=== PATIENT | female | born 1970 | race Caucasian/White ===

== ENCOUNTER 2020-12-04 08:33 | Outpatient (REF) | payer BC, SELFPAY ==
[2020-12-04 08:54] LABS: Hematocrit 38.2 % (37-47); Hemoglobin 13.8 g/dl (12.0-16.0); Mean Corpuscular HGB Conc 36.1 g/dl (31.0-35.0); Mean Corpuscular Hemoglobin 32.2 pg (27.0-33.0); Mean Platelet Volume 9.3 fL (9.4-12.3); Platelet Count 231 X10*3/uL (160-400); Red Blood Count 4.29 X10*6/uL (4.20-5.50); Red Cell Distribution Width 11.7 % (11.0-16.0); White Blood Count 3.8 X10*3/uL (4.8-10.8)
== END 2020-12-04 08:34 | disposition home or self-care (01) ==
LOC: HO.LAB 08:33
PROVIDERS: PCP Internal Medicine; Visit Provider Psychiatry & Neurology Neurology
DX: D70.9 Neutropenia, unspecified (principal)
CPT/HCPCS: 36415; 85027

== ENCOUNTER 2021-01-08 07:59 | Day surgery (SDC) | payer BC, SELFPAY ==
[2021-01-01 15:07] VITALS: BMI 23.3
--- NOTE | 2021-01-05 09:18 | HO.ANESPROP2 ---
Documented by User: Crystal Dyer NP 01/05/21 09:18 HPI - Anesthesia Eval Consult details Narrative: 50yo F for Colonoscopy PMFSH Past Medical History Medical History Anxiety and depression COVID-19 vaccine series completed Restless leg syndrome Seizures Family History Family History Father No problems noted. Mother No problems noted. Brother No problems noted. Brother No problems noted. Surgical History Surgical History History of esophagogastroduodenoscopy (EGD) History of fasciotomy History of total left knee replacement (TKR) Social History Social History Are you a primary home care rn to a significant other at home: No Do you presently have visiting nurse or other home services: No Patient Tobacco Use Status: Former Tobacco user Quit Date: age 20 Tobacco use type: Cigarette Use of substances other than those prescribed or required for medical reasons: No Have you been hit, kicked, punched, or otherwise hurt by someone within the past year? If so, by whom?: No Are you DNR?: No Advance Directives: Yes Advance Directives Information Provided: Yes (informational brochure mailed) Advance Directives on File: Yes Advance Directives Date on File: 01/08/21 Recently lost weight without trying: No Eating poorly because of decreased appetite: No Nutrition Risks: No Nutritional Risk Patient : No FDLMP: age 40 : No Poor oral hygiene: No Meds Allergies Allergy/AdvReac Type Severity Reaction Status Date / Time No Known Allergies Allergy Verified 01/08/21 08:39 [No Known Allergies*] Home Medications Medication Instructions Recorded Confirmed Last Taken Type escitalopram oxalate 20 mg tablet 20 mg PO DAILY 11/17/19 01/01/21 Unknown History promethazine 12.5 mg tablet 12.5 mg PO Q6H PRN 11/17/19 01/01/21 Unknown History cetirizine 10 mg tablet 10 mg PO DAILY 01/01/21 01/01/21 Unknown History docusate sodium 100 mg capsule 100 mg PO DAILY 01/01/21 01/01/21 Unknown History (Colace) gabapentin 100 mg tablet 100 mg PO BEDTIME PRN 01/01/21 01/01/21 Unknown History multivitamin 1 tab PO DAILY 01/01/21 01/01/21 Unknown History oxcarbazepine 300 mg tablet 300 mg PO BID 01/01/21 01/01/21 01/08/21 07:00 History polyethylene glycol 3350 17 gram 17 g PO DAILY 01/01/21 01/01/21 Unknown History oral powder packet (Miralax) Exam Exam Date and Time: January 05, [id number] Height,Weight and Vital Signs: Height 5 ft 5 in Weight 63.503 kg Assessment and Plan Assessment Anesthesia Assessment: Chart Reviewed Documented by User: Norma Olsen MD 01/08/21 10:12 [facility] Past Medical History Medical History Anxiety and depression COVID-19 vaccine series completed Restless leg syndrome Seizures Functional capacity: independent ambulation Patient : No Family History Family History Father No problems noted. Mother No problems noted. Brother No problems noted. Brother No problems noted. Surgical History Surgical History History of esophagogastroduodenoscopy (EGD) History of fasciotomy History of total left knee replacement (TKR) Social History Social History Are you a primary home care rn to a significant other at home: No Do you presently have visiting nurse or other home services: No Patient Tobacco Use Status: Former Tobacco user Quit Date: age 20 Tobacco use type: Cigarette Use of substances other than those prescribed or required for medical reasons: No Have you been hit, kicked, punched, or otherwise hurt by someone within the past year? If so, by whom?: No Are you DNR?: No Advance Directives: Yes Advance Directives Information Provided: Yes (informational brochure mailed) Advance Directives on File: Yes Advance Directives Date on File: 01/08/21 Recently lost weight without trying: No Eating poorly because of decreased appetite: No Nutrition Risks: No Nutritional Risk Patient : No FDLMP: age 40 : No Poor oral hygiene: No Meds Allergies Allergy/AdvReac Type Severity Reaction Status Date / Time No Known Allergies Allergy Verified 01/08/21 08:39 [No Known Allergies*] Home Medications Medication Instructions Recorded Confirmed Last Taken Type escitalopram oxalate 20 mg tablet 20 mg PO DAILY 11/17/19 01/01/21 Unknown History promethazine 12.5 mg tablet 12.5 mg PO Q6H PRN 11/17/19 01/01/21 Unknown History cetirizine 10 mg tablet 10 mg PO DAILY 01/01/21 01/01/21 Unknown History docusate sodium 100 mg capsule 100 mg PO DAILY 01/01/21 01/01/21 Unknown History (Colace) gabapentin 100 mg tablet 100 mg PO BEDTIME PRN 01/01/21 01/01/21 Unknown History multivitamin 1 tab PO DAILY 01/01/21 01/01/21 Unknown History oxcarbazepine 300 mg tablet 300 mg PO BID 01/01/21 01/01/21 01/08/21 07:00 History polyethylene glycol 3350 17 gram 17 g PO DAILY 01/01/21 01/01/21 Unknown History oral powder packet (Miralax) Exam Airway Mallampati Class: II TM Dist: >3cm Neck ROM: Full Heart: RRR Lungs: CTA Assessment and Plan Final Anesthetic Review Final Preanesthetic Review: No Changes in Pt Med Stat Patient Risk: Low Procedure Risk: Low Anesthetic Plan Anesthetic Plan: MAC: Disposition: Standard PACU
[2021-01-08 08:47] LABS: UPreg QC Valid YES; Urine Pregnancy NEGATIVE (NEGATIVE)
[2021-01-08] MEDS: Lactated Ringers 1,000 ML 100 ML IVCONT (08:56)
[2021-01-08] MEDS: Ampicillin Sodium 2 GM in 0.9 % Sodium Chloride 100 ML IV (08:56)
[2021-01-08 09:00] VITALS: BP 114/74; PULSE 49; RESP 16; TEMP 36.8; O2SAT 100
[2021-01-08] MEDS: Gentamicin Sulfate/NaCl 80 MG/100 ML PIGGYBACK 100 MG IV (09:10)
[2021-01-08 10:35] VITALS: BP 93/62; PULSE 50; RESP 16; TEMP 36.1; O2SAT 98
--- NOTE | 2021-01-08 10:39 | PM.OP ---
Brief Operative Note Date of Service: 01/08/21 Pre-op diagnosis: Screening Post-op diagnosis: other (Colon polyp) Procedure: Colonoscopy to the cecum and TI with biopsy/removal of polyp Surgeon: Ja Short Anesthesia: MAC Was an Manufacturing Maintenance Technician used for this Procedure?: No Estimated blood loss (mL): 2.0 Pathology: other (A. Proximal ascending colon polyp) Condition: stable Disposition: PACU
[2021-01-08 10:50] VITALS: BP 102/70; PULSE 48; RESP 16; TEMP 36.1; O2SAT 98
--- NOTE | 2021-01-08 13:15 | HO.POSTANES ---
Post Anesthesia Evaluation Post Anesthesia Evaluation Vital Signs: Vital Signs Temp Pulse Resp BP Pulse Ox 01/08/21 10:50 97.0 F 48 L 16 102/70 98 01/08/21 10:35 97.0 F 50 16 93/62 98 01/08/21 09:00 98.3 F 49 L 16 114/74 100 Anesthesia: Monitored Mental Status: Awake Pain Control: Satisfactory Nausea/Vomiting: None Hydration: Adequate Anesthesia-Related Issues: No Anes. Related Issues
--- NOTE | 2021-01-08 14:49 | OP_ITS ---
SURGEON: Ja Short MD INDICATIONS: The patient presents for evaluation of colorectal cancer screening as well as a history of some perianal itching. Full consent has been obtained from her for this, including risks of bleeding and perforation. PREOPERATIVE DIAGNOSIS: POSTOPERATIVE DIAGNOSIS: PROCEDURE PERFORMED: Colonoscopy to cecum and terminal ileum with biopsy and removal of polyp. ESTIMATED BLOOD LOSS: COMPLICATIONS: ANESTHESIA: Monitored anesthesia care. ASSISTANTS: SPECIMENS: PREOPERATIVE DIAGNOSES: Colorectal cancer screening and perianal itching. POSTOPERATIVE DIAGNOSES: Colorectal cancer screening and perianal itching, small colon polyp, mild sigmoid diverticulosis, and small internal hemorrhoids. DESCRIPTION OF PROCEDURE: The patient was placed in the left lateral decubitus position. The digital rectal exam revealed no abnormalities. The perianal area was inspected and there was no sign of any skin abnormalities, hemorrhoids, nor fissures. The Olympus video pediatric colonoscope was entered into the rectum and advanced easily to the cecum. Once in the cecum, I did identify normal-appearing cecal pouch with appendiceal orifice and a normal-appearing ileocecal valve. The terminal ileum was cannulated and appeared normal. The scope was withdrawn back in the colon. The entire cecum and ileocecal valve appeared normal. The scope was slowly withdrawn assessing all mucosal surfaces carefully. Preparation was excellent. In the proximal ascending colon, was a flat approximately 3 mm polyp, which was biopsied and completely removed with cold biopsy forceps. I did not visualize any other polyps, colitis, nor angiodysplasia. There was a mild amount of sigmoid diverticulosis. In the rectum, scope was retroflexed visualizing small internal hemorrhoids, but no other pathology. The rectal mucosa appeared normal. The scope was straightened out and withdrawn from the patient. She tolerated the procedure well and was returned to recovery area in stable condition. IMPRESSION: 1. Small colon polyp, status post biopsy and removal. 2. Mild sigmoid diverticulosis. 3. Small internal hemorrhoids. PLAN: The results of the biopsy will be checked. If this is a tubular adenoma, I would recommend a followup colonoscopy in 5 years. If it is only hyperplastic, I would recommend a followup colonoscopy in 10 years. In regard to the history of perianal itching, she does report that this resolved with the use of a cream for anti-fungal infections. She is presently feeling well in that regard and will continue to use that as needed. She will see me on a p.r.n. basis. MD ARIES Pinzon/JAJA / [id number]
== END 2021-01-08 11:26 | disposition home or self-care (01) ==
PROVIDERS: Nurse Practitioner; PCP Internal Medicine; Visit Provider Internal Medicine
PROC: 0DJD8ZZ Inspection of Lower Intestinal Tract, Via Natural or Artificial Opening Endoscopic (ICD-10-PCS; CPT 45378; principal; 2021-01-08 09:30)
DX: Z12.11 Encounter for screening for malignant neoplasm of colon (principal); D12.2 Benign neoplasm of ascending colon; K57.30 Diverticulosis of large intestine without perforation or abscess without bleeding; K64.8 Other hemorrhoids; K59.09 Other constipation; L29.0 Pruritus ani; F41.8 Other specified anxiety disorders; G40.909 Epilepsy, unspecified, not intractable, without status epilepticus; G25.81 Restless legs syndrome; Z79.899 Other long term (current) drug therapy; Z87.891 Personal history of nicotine dependence
CPT/HCPCS: 45380; 81025; 88305; J0290; J1580

== ENCOUNTER 2021-06-04 08:50 | Outpatient (REF) | payer BC, SELFPAY ==
[2021-06-04 09:01] LABS: MANUAL DIFF FLAG NO
[2021-06-04 09:11] LABS: Basophils Absolute Auto 0.1 X10*3/uL (0.0-0.2); Basophils Percent Auto 1.4 % (0-2); Eosinophils Absolute Auto 0.6 X10*3/uL (0.0-0.4); Eosinophils Percent Auto 12.9 % (0-4); Hematocrit 40.7 % (37.0-47.0); Hemoglobin 14.2 g/dl (12.0-16.0); Imm Gran Abs Auto 0.01 X10*3/uL (0.00-0.03); Imm Gran Pct Auto 0.2 % (0.0-0.4); Lymphocytes Absolute Auto 1.4 X10*3/uL (1.2-4.9); Lymphocytes Percent Auto 27.4 % (20-40); Mean Corpuscular HGB Conc 34.9 g/dl (31.0-35.0); Mean Corpuscular Hemoglobin 31.9 pg (27.0-33.0); Mean Corpuscular Volume 91.5 fL (80.0-98.0); Mean Platelet Volume 9.6 fL (9.4-12.3); Monocytes Absolute Auto 0.4 X10*3/uL (0.1-1.2); Monocytes Percent Auto 8.9 % (2-11); Neutrophils Absolute Auto 2.5 x10*3/uL (2.0-8.3); Neutrophils Percent Auto 49.2 % (45-73); Platelet Count 250 X10*3/uL (160-400); Red Blood Count 4.45 X10*6/uL (4.20-5.50); Red Cell Distribution Width 11.8 % (11.0-16.0)
[2021-06-04 09:49] LABS: Alanine Aminotransferase 18 U/L (0-31); Albumin Level 4.4 g/dL (3.5-5.0); Alkaline Phosphatase 48 U/L (39-117); Aspartate Amino Transferase 22 U/L (5-31); Bilirubin Direct 0.2 mg/dL (0.0-0.5); Bilirubin Total 0.5 mg/dL (0.0-1.0); Total Protein 6.6 g/dL (6.5-8.0)
== END 2021-06-04 08:51 | disposition home or self-care (01) ==
LOC: HO.LAB 08:50
PROVIDERS: PCP Internal Medicine; Visit Provider Psychiatry & Neurology Neurology
DX: G40.209 Localization-related (focal) (partial) symptomatic epilepsy and epileptic syndromes with complex partial seizures, not intractable, without status epilepticus (principal); D70.9 Neutropenia, unspecified
CPT/HCPCS: 36415; 80076; 85025

== ENCOUNTER 2022-06-03 08:32 | Outpatient (REF) | payer BC, SELFPAY ==
[2022-06-03 08:47] LABS: MANUAL DIFF FLAG NO
[2022-06-03 08:50] LABS: Basophils Absolute Auto 0.1 X10*3/uL (0.0-0.2); Basophils Percent Auto 2.2 % (0-2); Eosinophils Absolute Auto 0.3 X10*3/uL (0.0-0.4); Hematocrit 40.3 % (37.0-47.0); Hemoglobin 14.5 g/dl (12.0-16.0); Lymphocytes Absolute Auto 1.3 X10*3/uL (1.2-4.9); Lymphocytes Percent Auto 34.8 % (20-40); Mean Corpuscular Hemoglobin 32.8 pg (27.0-33.0); Mean Corpuscular Volume 91.2 fL (80.0-98.0); Mean Platelet Volume 9.7 fL (9.4-12.3); Monocytes Absolute Auto 0.3 X10*3/uL (0.1-1.2); Monocytes Percent Auto 8.7 % (2-11); Neutrophils Absolute Auto 1.7 x10*3/uL (2.0-8.3); Neutrophils Percent Auto 45.3 % (45-73); Platelet Count 242 X10*3/uL (160-400); Red Blood Count 4.42 X10*6/uL (4.20-5.50); Red Cell Distribution Width 11.5 % (11.0-16.0); White Blood Count 3.7 X10*3/uL (4.8-10.8)
[2022-06-03 09:31] LABS: Alanine Aminotransferase 19 U/L (0-31); Albumin Level 4.6 g/dL (3.5-5.0); Alkaline Phosphatase 49 U/L (39-117); Aspartate Amino Transferase 24 U/L (5-31); Bilirubin Direct 0.2 mg/dL (0.0-0.5); Bilirubin Total 0.7 mg/dL (0.0-1.0); Total Protein 6.6 g/dL (6.5-8.0)
== END 2022-06-03 08:33 | disposition home or self-care (01) ==
LOC: HO.LAB 08:32
PROVIDERS: PCP Internal Medicine; Visit Provider Psychiatry & Neurology Neurology
DX: G40.209 Localization-related (focal) (partial) symptomatic epilepsy and epileptic syndromes with complex partial seizures, not intractable, without status epilepticus (principal)
CPT/HCPCS: 36415; 80076; 85025

== ENCOUNTER 2023-06-02 08:40 | Outpatient (REF) | payer BC, SELFPAY ==
[2023-06-02 09:04] LABS: MANUAL DIFF FLAG NO
[2023-06-02 09:12] LABS: Basophils Absolute Auto 0.1 X10*3/uL (0.0-0.2); Basophils Percent Auto 2.3 % (0-2); Eosinophils Absolute Auto 0.3 X10*3/uL (0.0-0.4); Eosinophils Percent Auto 8.5 % (0-4); Hematocrit 38.5 % (37.0-47.0); Hemoglobin 13.8 g/dl (12.0-16.0); Lymphocytes Absolute Auto 1.4 X10*3/uL (1.2-4.9); Lymphocytes Percent Auto 38.7 % (20-40); Mean Corpuscular HGB Conc 35.8 g/dl (31.0-35.0); Mean Corpuscular Hemoglobin 32.2 pg (27.0-33.0); Mean Corpuscular Volume 89.7 fL (80.0-98.0); Mean Platelet Volume 9.5 fL (9.4-12.3); Monocytes Absolute Auto 0.3 X10*3/uL (0.1-1.2); Monocytes Percent Auto 8.8 % (2-11); Neutrophils Absolute Auto 1.5 x10*3/uL (2.0-8.3); Neutrophils Percent Auto 41.7 % (45-73); Platelet Count 223 X10*3/uL (160-400); Red Blood Count 4.29 X10*6/uL (4.20-5.50); Red Cell Distribution Width 11.5 % (11.0-16.0); White Blood Count 3.5 X10*3/uL (4.8-10.8)
[2023-06-02 09:50] LABS: C Reactive Protein 0.11 mg/dL (< or = 0.50)
[2023-06-02 09:59] LABS: Rheumatoid Factor < 13.0 IU/mL (<15.0)
[2023-06-02 10:07] LABS: Erythrocyte Sedimentation Rate 2 MM/HR (0-20)
[2023-06-03 09:50] LABS: Lyme Abs Screen <0.90 index
[2023-06-04 13:49] LABS: ANA Titer 2 1:40 titer; Anti Nuclear Antibody Pattern Nuclear, Nucleolar; Anti Nuclear Antibody Screen POSITIVE (NEGATIVE); Anti Nuclear Antibody Titer 1:40 titer
[2023-06-04 14:38] LABS: Complement C3 68 mg/dL (83-193)
== END 2023-06-02 08:41 | disposition home or self-care (01) ==
LOC: HO.LAB 08:40
PROVIDERS: PCP Internal Medicine; Visit Provider Psychiatry & Neurology Neurology
DX: G40.209 Localization-related (focal) (partial) symptomatic epilepsy and epileptic syndromes with complex partial seizures, not intractable, without status epilepticus (principal)
CPT/HCPCS: 36415; 84550; 85025; 85652; 86038; 86039; 86140; 86160; 86431; 86617; 86618

== ENCOUNTER 2024-05-03 15:25 | Outpatient (REF) | payer BC, SELFPAY ==
[2024-05-03 16:31] LABS: MANUAL DIFF FLAG NO
[2024-05-03 16:57] LABS: Basophils Absolute Auto 0.1 X10*3/uL (0.0-0.2); Basophils Percent Auto 1.3 % (0-2); Eosinophils Absolute Auto 0.3 X10*3/uL (0.0-0.4); Eosinophils Percent Auto 4.9 % (0-4); Hematocrit 35.9 % (37.0-47.0); Hemoglobin 13.1 g/dl (12.0-16.0); Imm Gran Abs Auto 0.01 X10*3/uL (0.00-0.03); Imm Gran Pct Auto 0.2 % (0.0-0.4); Lymphocytes Absolute Auto 1.9 X10*3/uL (1.2-4.9); Lymphocytes Percent Auto 31.6 % (20-40); Mean Corpuscular HGB Conc 36.5 g/dl (31.0-35.0); Mean Corpuscular Hemoglobin 32.8 pg (27.0-33.0); Mean Corpuscular Volume 89.8 fL (80.0-98.0); Mean Platelet Volume 9.3 fL (9.4-12.3); Monocytes Absolute Auto 0.4 X10*3/uL (0.1-1.2); Monocytes Percent Auto 7.2 % (2-11); Neutrophils Absolute Auto 3.3 x10*3/uL (2.0-8.3); Neutrophils Percent Auto 54.8 % (45-73); Platelet Count 276 X10*3/uL (160-400); Red Cell Distribution Width 11.6 % (11.0-16.0)
[2024-05-03 17:14] LABS: Appearance Urine Clear; Color Urine Yellow; Glucose Urine UA Negative (Negative); Leukocyte Esterase Urine Small (1+) (Negative); Nitrite Urine Negative (Negative); UMIC TRIGGER UACC YES; Urine Blood Negative (Negative); Urine Ketones Negative (Negative); Urine Protein Negative (Neg-Trace)
[2024-05-03 17:14] LABS: Estimated Average Glucose 97 mg/dL
[2024-05-03 17:21] LABS: Bacteria Urine None Seen (None Seen); Hyaline Casts Urine 0-2 /LPF (0-2); RBC Urine 0-2 /HPF (0-2); Squamous Epithelial Cell Urine 0-2 /HPF (0-2); UACC Culture Trigger YES
[2024-05-03 17:29] LABS: Monotest Negative (Negative)
[2024-05-03 17:39] LABS: Alanine Aminotransferase 22 U/L (0-31); Albumin Level 4.4 g/dL (3.5-5.0); Alkaline Phosphatase 56 U/L (39-117); Anion Gap 9 (12-20); Aspartate Amino Transferase 24 U/L (5-31); Bilirubin Direct 0.1 mg/dL (0.0-0.5); Bilirubin Total 0.3 mg/dL (0.0-1.0); Blood Urea Nitrogen 13 mg/dL (9-16); Calcium 8.9 mg/dL (8.4-10.2); Carbon Dioxide 28 mmol/L (22-29); Chloride 98 mmol/L (96-108); Estimated Glomerular Filt Rate > 60; Glucose Random 103 mg/dL (60-115); Sodium 131 mmol/L (135-145)
[2024-05-03 17:42] LABS: Parathyroid Hormone Intact 91.6 pg/mL (8.7-77.1)
[2024-05-03 17:53] LABS: TSH reflex Free T4 1.58 uIU/mL (0.32-4.0); Vitamin D 25-OH Total 28.3 ng/mL (>30)
[2024-05-03 18:03] LABS: Folate 11.2 ng/mL (> or = 4.0); Vitamin B12 982 pg/mL (200-900)
[2024-05-04 11:12] LABS: Lyme Abs Screen <0.90 index
[2024-05-05 18:08] LABS: Zinc 66 mcg/dL (60-130)
[2024-05-11 07:13] LABS: Vitamin B1 13 nmol/L (8-30)
== END 2024-05-03 15:26 | disposition home or self-care (01) ==
LOC: HO.LAB 15:25
PROVIDERS: PCP Internal Medicine; Visit Provider Physician Assistant Medical
DX: Z00.00 Encounter for general adult medical examination without abnormal findings (principal); R53.1 Weakness; Z13.1 Encounter for screening for diabetes mellitus
CPT/HCPCS: 36415; 80053; 81001; 82248; 82306; 82607; 82746; 83036; 83735; 83970; 84425; 84443; 84630; 85025; 86140; 86308; 86617; 86618; 87086

== ENCOUNTER 2024-05-03 15:25 | Outpatient (AMB) | payer BC, SELFPAY ==
--- NOTE | 2024-05-03 15:29 | MHC.PC.OV ---
Vital Signs 05/03/24 15:39 Height 5 ft 5.25 in Weight 140 lb BMI 23.1 BP 102/60 Blood Pressure Location Rt brachial Pulse 52 Pulse Source Pulse Oximeter Temp 97.1 F Pulse Oximetry (%) 100 Intake Visit Reasons: Feeling foggy Intake Note: light leaded since being sick, no energy Allergies No Known Allergies [No Known Allergies*] Allergy (Verified 05/03/24 16:10) Medication List - Last Reconciled 05/03/24 by Marva Olson PA-C escitalopram oxalate 20 mg PO DAILY gabapentin 100 mg PO BEDTIME PRN meclizine 25 mg PO BID PRN oxcarbazepine 300 mg PO BID promethazine 12.5 mg PO Q6H PRN PFSH Medical History (Updated 05/03/24 @ 16:15 by Marva Olson PA-C) Lightheadedness History of mammogram (~11/06/18) Constipation Seizure disorder Anxiety disorder Weakness COVID-19 vaccine series completed Restless leg syndrome Seizures Anxiety and depression Surgical History History of colonoscopy (~01/08/21) History of esophagogastroduodenoscopy (EGD) History of total left knee replacement (TKR) History of fasciotomy Family History Father No problems noted. Mother No problems noted. Brother No problems noted. Brother No problems noted. Social History Are you a primary pediatric critical care nurse to a significant other at home: No Do you presently have visiting nurse or other home services: No Patient Tobacco Use Status: Former Tobacco user Tobacco use type: Cigarette Advance Directives Date on File: 01/08/21 Physical exam (Primary Care) Vital Signs: Last Vital Signs Temp 97.1 F 05/03/24 15:39 Pulse 52 05/03/24 15:39 BP 102/60 05/03/24 15:39 Pulse Ox 100 05/03/24 15:39 BMI result Body Mass Index 23.1 Tobacco/Smoking Status: Tobacco use Status Patient Tobacco Use Status Former Tobacco user 05/03/24 15:42 Tobacco use type Cigarette 05/03/24 15:42 Coding Level of Care Code New Pt Level 4 (98956) Complex EM visit Add On G2211 Diagnoses Weakness R53.1 Lightheadedness R42 Assessment & Plan Assessment & Plan (1) Weakness: Code(s): R53.1 - Weakness Category: Medical Plan: Patient has a normal neuro exam. Will obtain basic labs. Patient will be prescribed meclizine. Will continue to monitor. (2) Lightheadedness: Code(s): R42 - Dizziness and giddiness Category: Medical Plan Plan Patient was informed and verbally consented to the use of an ambient scribe for clinic note documentation during this visit. 1. Viral Upper Respiratory Infection Resolved Resolved post-azithromycin therapy; no additional treatment needed unless symptoms reemerge. 2. Generalized Weakness And Lightheadedness Comprehensive lab assessments including CBC, CMP, and specific vitamin levels will be performed. Management includes meclizine for possible vestibular imbalance. Further evaluation with physical therapy or imaging studies will be considered based on symptom progression. Discussion Notes I reviewed the differential diagnoses with the patient, considering potential causes of her generalized weakness and lightheadedness, such as nutritional deficiencies and vestibular disturbance post-infection. We discussed a comprehensive diagnostic workup to identify any deficiencies or ongoing issues. Treatment with meclizine was offered to alleviate potential vestibular symptoms. I emphasized the importance of follow-up based on test results and outlined additional interventions, such as physical therapy or imaging, if symptoms persist. Patient expressed understanding and agreement with the plan moving forward. Orders: Orders C Reactive Protein 05/03/24 Z00.00 - Encounter for general adult medical examination without abnormal findings Liver Panel 05/03/24 Z00.00 - Encounter for general adult medical examination without abnormal findings Hemoglobin A1c 05/03/24 Z00.00 - Encounter for general adult medical examination without abnormal findings Vitamin B12 and Folate 05/03/24 Z00.00 - Encounter for general adult medical examination without abnormal findings UA CC w/rflx Micro + Cult 05/03/24 R53.1 - Weakness Lyme IgG/IgM w/reflex to WB 05/03/24 Z00.00 - Encounter for general adult medical examination without abnormal findings Zinc 05/03/24 Z00.00 - Encounter for general adult medical examination without abnormal findings Complete Blood Count Auto Diff 05/03/24 Z00.00 - Encounter for general adult medical examination without abnormal findings Comprehensive Met. Panel 05/03/24 Z00.00 - Encounter for general adult medical examination without abnormal findings Magnesium 05/03/24 Z00. - Encounter for general adult medical examination without abnormal findings TSH reflex Free T4 05/03/24 Z00. - Encounter for general adult medical examination without abnormal findings Vitamin B1 05/03/24 Z00. - Encounter for general adult medical examination without abnormal findings Vitamin D 25-OH Total 05/03/24 Z00. - Encounter for general adult medical examination without abnormal findings Monotest 05/03/24 R53.1 - Weakness Parathyroid Hormone Intact 05/03/24 Z00. - Encounter for general adult medical examination without abnormal findings Medications: New meclizine 25 mg PO BID PRN 30 tabs 1RF dizziness Patient Instructions: Patient Instructions - Complete lab work as soon as possible. - Take meclizine as directed for lightheadedness. - Maintain hydration and consider electrolyte supplementation. - Monitor for any new or worsening symptoms and notify promptly. - Follow up after test results are available. Scribe Plan - Not visible on output: History of Present Illness The patient is a 54-year-old female presenting with generalized weakness and lightheadedness. Her symptoms began three weeks ago following a presumed viral upper respiratory infection. She initially experienced gastrointestinal discomfort and systemic symptoms, treated with a course of Azithromycin and cough syrup, resulting in significant improvement. Currently, she reports persistent weakness and lightheadedness, described as a continuous sensation of mild inebriation without recent alcohol consumption. Her fatigue and energy levels remain diminished, disrupting her regular activities. She abstained from coffee, opting for tea post-illness. She denies any dizziness upon recline and such symptoms are continuous throughout the day. Comprehensive testing is considered necessary to explore potential deficiencies or vestibular disturbances contributing to these persistent symptoms. Social History - Employment: Patient has a demanding travel schedule for work. - Family Status: Mother of two children, aged 6 and 8, both active in sports. - Exercise: Regular gym attendee, though current energy levels have impeded her routine. - Current Nutritional Intake: Reduced appetite during initial illness with dietary modifications, including increased tea consumption, and supplemented with electrolytes. Review of Systems - General: Reports generalized weakness and fatigue. - Neurology: Reports persistent lightheadedness but denies vertigo or dizziness. - GI: Denies diarrhea but reports chronic constipation. - Respiratory: Denies current cough or shortness of breath. Physical Exam Appearance: Alert. Oriented X3. No acute distress. Head: Normal external exam. Normocephalic. Atraumatic. Eyes: Pupils are equal, round, and reactive to light. Extraocular movements intact. Conjunctiva and sclera normal. Eyelids normal. Ears: External auditory canal normal. Tympanic membranes normal. Slight fluid noted in the ear, described as a small line at the bottom. Throat: Pharynx normal. Uvula midline. Moist mucous membranes. Neck: Normal inspection. Neck supple. Full range of motion. No adenopathy. Thyroid Normal. No meningeal signs. No neck mass noted. Cardiovascular: Normal heart rate and rhythm. Heart sound normal. No murmurs noted. Pulses normal throughout. Respiratory: No respiratory distress. Painless inspiration. Breath sounds normal. No wheezes/rales/rhonchi noted. Chest nontender. No accessory muscle usage noted or decreased air movement noted. Abdomen: Soft and nontender. Bowel sounds normal in all 4 quadrants. No distention noted. No organomegaly noted. No visible injury noted. Back: No costovertebral angle tenderness. Full range of motion noted. Skin: Skin warm and dry. Normal skin color. Normal skin turgor. No rashes/lesions/lacerations noted. Extremities: No lower extremity edema. Extremities exhibit normal range of motion. Extremities nontender. Neuro: Oriented X 3. No motor deficit. No sensory deficit. Reflexes normal. Slight imbalance noted during tandem walk, improved on second attempt. No arm drift noted during neural tests. No facial weakness is noted. Normal sensation throughout. Normal steady gait. Normal neuro exam.
[2024-05-03 15:39] VITALS: BP 102/60; PULSE 52; TEMP 36.2; O2SAT 100; BMI 23.1
--- OUTSIDE RECORDS SUMMARY | 2024-05-03 17:55 | XMS_ITS | Clinical Summary ---
Author Organization [facility] Address [address] [place] [address] Phone Care Team Providers Care Pharmacologist Name Role Phone Ja Gomes DO Primary Care Provider [phone] Allergies No known active allergies Medications carBAMazepine (TEGretol) 100 mg/5 mL suspension suspension Take by mouth. Acti ve citalopram (CeleXA) 10 mg/5 mL suspension Take 5 mL (10 mg total) by mouth. Active amoxicillin (AMOXIL) 500 mg capsule Take 1 capsule (500 mg total) by mouth every 8 (eight) hours. for 7 days 01/29/20 23 Active azithromycin (ZITHROMAX) 250 mg tablet TAKE 2 TABLETS BY MOUTH TODAY, THEN TAKE 1 TABLET DAILY FOR 4 DAYS DIRECTED 02/02/20 23 Active clobetasoL (TEMOVATE) 0.05 % ointment APPLY 1 APPLICATION TOPICALLY DAILY FOR 14 DAYS, THEN 1 APPLICATION DAILY. 09/10/19 24 Active clotrimazole-betam ethasone (LOTRISONE) 1-0.05 % cream Apply 1 Application topically 2 (two) times a day. APPLY TO AFFECTED AREA Active BinaxNOW COVID-19 Ag Self Test kit TEST DIRECTED TODAY 02/18/19 24 Active cyclobenzaprine (FLEXERIL) 10 mg tablet TAKE 1 TABLET BY MOUTH TWICE A DAY NEEDED FOR 10 DAYS 12/23/19 24 Active docusate sodium (COLACE) 100 mg capsule Take 1 capsule (100 mg total) by mouth 3 times daily as needed. Active escitalopram (LEXAPRO) 20 mg tablet Take 1 tablet (20 mg total) by mouth 1 (one) time each day. for 90 days Active estradioL (ESTRACE) 0.01 % (0.1 mg/gram) vaginal cream Insert into the vagina. 10/22/19 24 025 Active fluorometholone (FML) 0.1 % ophthalmic suspension SHAKE LIQUID AND INSTILL 1 DROP IN BOTH EYES THREE TIMES DAILY 11/28/19 24 Active gabapentin (NEURONTIN) 100 mg capsule TAKE 1 CAPSULE BY MOUTH EVERY DAY NEEDED FOR 90 DAYS 06/02/19 24 Active lidocaine HCL 3 % cream Apply topically 3 times daily. 11/22/19 21 Active nystatin-triamcino lone (MYCOLOG II) ointment Apply thin film to affected areas twice weekly. 02/07/20 22 Active ondansetron ODT (ZOFRAN-ODT) 4 mg disintegrating tablet Take 1 tablet (4 mg total) by mouth every 8 (eight) hours if needed. for nausea and vomiting 08/28/19 24 Active OXcarbazepine (TRILEPTAL) 300 mg tablet Take 1 tablet (300 mg total) by mouth 2 (two) times a day. 12/24/19 24 Active triamcinolone (KENALOG) 0.1 % ointment Apply thin film topically twice a day to affected area as needed. 11/11/19 21 Active Active Problems Problem Noted Date Diagnosed Date Lichen sclerosus et atrophicus of the vulva 05/2023 Overview (01/08/2024): Presumptive diagnosis. No biopsy. Pale vulvar skin, joslyn-clitoral irritation, mild loss/agglutination of right labia minora. Good response to clobetasol. Diverticulosis of colon 09/10/2023 Seizure disorder 09/10/2023 Genital pruritus 02/06/2022 Constipation 03/17/2018 Vaginitis and vulvovaginitis 03/13/2018 Syncope and collapse 02/04/2017 Encounters Date Type Department Care Team Description 02/24/2024 11:15 AM EST Office Visit Orthopedic Surgery [facility] [address] [facility] [address] [place] [phone] Renata Rivers PA Pain of finger of left hand (Primary Dx) 02/23/2024 Telephone Orthopedic Surgery [facility] [address] [facility] [address] [place] [id number] Renata Rivers PA from Last 3 Months Immunizations Name Administration Dates Next Due Influenza Quadravalent, MDCK , 0.5ml, preservative free (Flucelvax) 6mo and older 12/06/2017 Influenza Quadrivalent, 0.5m l, preservative free (Fluarix; FluLaval; Fluzone) ages 6mo and older (Afluria) 3yo and older 12/05/2022,11/19/2021,12/04/2020,2019,01/08/2019,12/08/2015 Influenza trivalent, MDCK, 0 .5mL, preservative free (Flucelvax) 6mo and older 10/22/2023 Tdap Tetanus diptheria acell ular pertussis (Boostrix; Adacel) 7yo and older 09/10/2021 Zoster recombinant (Shingrix ) 19yo and older 10/22/2023 Surgical History Surgery Date Site/Laterality Comments KNEE SURGERY Left PROCEDURE: HISTORICAL KNEE SURGERY Medical History Medical History Date Comments Anxiety state DX:Anxiety state Seizure (CMS/HCC) DX:Seizure (HC C); COMMENT: had grand mal age 21 Family History Medical History Relation Name Comments Bipolar disorder Father Depression Father Breast cancer Mother Relation Name Status Comments Father Mother Social History Tobacco Use Types Packs/Day Years Used Date Smoking Tobacco: Never Smokeless Tobacco: Never Alcohol Use Standard Drinks/Week Comments Yes 1 (1 standard drink = 0.6 oz pur e alcohol) Comments Unknown Sex and Gender Information Value Date Recorded Sex Assigned at Not on file Legal Sex Female 11:03 AM EDT Gender Identity Not on file Sexual Orientation Not on file Obstetrics History Last Filed Vital Signs Vital Sign Reading Time Taken Comments Blood Pressure - - Pulse - - Temperature - - Respiratory Rate - - Oxygen Saturation - - Inhaled Oxygen Concentration - - Weight 61.2 kg (135 lb) 08/07/2023 3:35 PM EDT Height 165.1 cm (5' 5 ) 08/07/2023 3:35 PM EDT Body Mass Index 22.47 08/07/2023 3:35 PM EDT Plan of Treatment Health Maintenance Due Date Last Done Comments Hepatitis B Vaccines (1 of 3 - 19+ 3-dose series) 1990 Cervical Cancer Screening: Pap Smear 02/02/1992 Pneumococcal Vaccine: 50+ Years (1 of 1 - PCV) 2021 Colorectal Cancer Screening: Colonoscopy 09/12/2023 Depression Screening 09/12/2023 HIV Screening 09/12/2023 Hepatitis C Screening 09/12/2023 Social Influencers of Health Screening 09/12/2023 Zoster Vaccines (2 of 2) 12/17/2023 10/22/2023 Breast Cancer Screening 01/24/2025 01/24/2023 Cholesterol Screening (Lipid Panel) 09/28/2028 09/29/2023 DTaP,Tdap,and Td Vaccines (2 - Td or Tdap) 09/11/2031 09/10/2021 Influenza Vaccine Completed 10/22/2023, , 11/19/2021, Additional history exists COVID-19 Vaccine Completed 01/07/2024, 03/2023, 11/19/2021, Additional history exists HIB Vaccines Aged Out No longer eligi ble based on patient's age to complete this topic HPV Vaccines Aged Out No longer eligi ble based on patient's age to complete this topic Hepatitis A Vaccines Aged Out No long er eligible based on patient's age to complete this topic IPV Vaccines Aged Out No longer eligi ble based on patient's age to complete this topic MMR Vaccines Aged Out No longer eligi ble based on patient's age to complete this topic Meningococcal ACWY Vaccine Aged Out N o longer eligible based on patient's age to complete this topic Meningococcal B Vacine Aged Out No lo nger eligible based on patient's age to complete this topic Pneumococcal Vaccine: Pediatrics (0 to 5 Years) and At-Risk Patients (6 to 64 Years) Aged Out No longer eligible based on patient's age to complete this topic RSV Immunization Patients Under 20 months Aged Out No longer eligible based on patient's age to complete this topic Varicella Vaccines Aged Out No longer eligible based on patient's age to complete this topic Procedures Procedure Name Priority Date/Time Associated Diagnosis Comments HAND/UPPER EXTREMITY ARTHROCENTESIS Routine 02/24/2024 11:15 AM EST Pain of finger of left hand from Last 3 Months Results * Hand / UE Inj/Asp (02/24/2024 11:15 AM EST) Narrative Renata Rivers PA - 02/24/2024 11:15 AM EST CHERYL Archuleta ? 02/24/2024 11:50 AM Hand / UE Inj/Asp for trigger finger Indications: pain Details: 25 G needle, volar approach Medications: 0.5 mL lidocaine 1 %; 20 mg triamcinolone acetonide 40 mg/mL Informed Consent: ??Relevant images/test results available and reviewed: yes ?Health status cleared: ??Yes ??Procedure/treatment, purpose, treatment alternatives, risks/potential complications and benefits explained: yes ?Risk/complications/benefits details: ??Risks of infection, thinning of the skin and temporary skin discoloration discussed. ??Discussed risks of temporary increased pain after injection and swelling and mild redness at injection site for couple days. ??Explained occasionally cortisone injection can cause facial flushing temporarily. ??Benefits pain management. ??For postop injection pain ice, Tylenol and/or NSAIDs if patient can take ??Patient questions answered: yes ?Patient agrees, verbalizes understanding, and wants to proceed: yes ?Consent given by: ??Patient ??Informed consent discussion completed by Physician/FORREST with patient: ?? Verbal ??Pre-procedure timeout performed: yes ?? Renata LUNA IN CLINIC/BEDSIDE ORDERABLES Final Result from Last 3 Months Insurance [facility] Care Teams Pharmacologist Relationship Specialty Start Date End Date Ja Gomes DO [address] [place] [phone] PCP - General 07/16/23
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
== END 2024-05-03 16:12 | disposition home or self-care (01) ==
LOC: HO.HMCSH 15:25
PROVIDERS: PCP Internal Medicine; Visit Provider Physician Assistant Medical
DX: R53.1 Weakness (principal); R42 Dizziness and giddiness

== ENCOUNTER 2024-07-09 08:17 | Outpatient (AMB) | payer BC, SELFPAY ==
[2024-07-09 08:21] VITALS: BP 114/62; PULSE 97; O2SAT 92; BMI 25.4
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
--- OUTSIDE RECORDS SUMMARY | 2024-07-09 08:24 | XMS_ITS | Clinical Summary ---
Author Organization [facility] Address [address] [place] [address] Phone Care Team Providers Care Flight Instructor Name Role Phone Ja Gomes DO Primary Care Provider [phone] Allergies No known active allergies Medications carBAMazepine [...] clobetasol. Diverticulosis of colon 09/10/2023 Seizure disorder ([facility] V24, [facility] V28) 08/18 Genital pruritus 02/06/2022 Constipation 03/17/2018 Vaginitis and vulvovaginitis 03/13/2018 Syncope and collapse 02/04/2017 Immunizations Name Administration Dates Next Due Influenza [...] Date Comments Anxiety state DX:Anxiety state Seizure ([facility] V24, [facility] V28) DX:Seizure ([facility]); COMMENT: had grand mal age 21 Family [...] age to complete this topic Meningococcal B Vaccine Aged Out No l onger eligible based on patient's age to complete [...] on patient's age to complete this topic Insurance [facility] Care Teams Flight Instructor Relationship Specialty Start Date End Date Ja Gomes DO [address] [place] [phone] PCP - General 07/16/23
== END 2024-07-09 08:51 | disposition home or self-care (01) ==
LOC: HO.ENCR 08:18
PROVIDERS: PCP Internal Medicine; Visit Provider Student in an Organized Health Care Education/Training Program
DX: R79.89 Other specified abnormal findings of blood chemistry (principal); E55.9 Vitamin D deficiency, unspecified
CPT/HCPCS: 99204

== ENCOUNTER 2024-10-04 11:03 | Outpatient (AMB) | payer BC, SELFPAY ==
[2024-10-04 11:05] VITALS: BP 116/84; PULSE 51; O2SAT 97; BMI 24.3
--- NOTE | 2024-10-04 11:05 | A.OFFVIS_ITS ---
Vital Signs 3 10/04/24 11:05 Height 5 ft 2.5 in Weight 135 lb 2.294 oz BMI 24.3 BP 116/84 Blood Pressure Location Lt brachial Position Sitting Pulse 51 Pulse Source Pulse Oximeter Pulse Oximetry (%) 97 Oxygen Delivery Method Room Air Intake Visit Reasons: Elevated parathyroid hormone Intake Note: Patient present today for Elevated parathyroid hormone office visit. 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 HPI Chart review shows patient has had normal calcium levels ranging anywhere from 8.9-9.6 with albumin anywhere from 4.4-4.6, corrected calcium would be even lower. Normal kidney function. Most recent labs from April 2024 showed calcium of 8.9 with albumin of 4.4, corrected calcium would be 8.5, low vitamin-D level of 28.3, normal kidney function, normal thyroid function, PTH elevated at 91.6. Started on 5000 units of vitamin-D by PCP April 2024 daily. missed a few days here and there No calcium supplements No milk Cottage cheese 3-4 times a week Yogurt on the days she doesnt have cottage cheese No kidney stones Skiing accident 2014 tibial fracture No family history of kidney stones First cousin had parathyroid surgery Reports constipation. No abd pain. Reports brain fog after her recent viral infection. no muscles aches or pains. PMHx Seizure disorder Anxiety PSHX Leg surgery Interval history 10/04/2024 Labs repeated 08/26/2024 at [facility] after patient had been supplemented adequately with vitamin-D and increase nutritional intake of calcium showed normal ionized calcium of 5, normal calcium of 9.3, albumin of 4.5, corrected calcium would be 8.8, phosphorus normal at 4.1, normal kidney function with a EGFR 95, PTH normal at 37, vitamin-D normal at 61. Physical exam General: sitting comfortably in no acute distress HEENT: normocephalic/atraumatic, Neck: supple, symmetrical, no thyromegaly , no dorsocervical or supraclavicular fat pads Cardiac: normal heart sounds Pulm: normal breath sounds B/L, no added breath sounds Abd: not distended, no tenderness Extremities: no edema, no signs of myxedema Laboratory Tests 07/30/18 11/15/19 06/04/21 14:25 09:17 08:59 Estimated GFR Calcium 9.6 Magnesium Albumin 4.5 4.4 25-OH Vitamin D Total TSH PTH Intact 06/03/22 05/03/24 08:46 16:26 Estimated GFR > 60 Calcium 8.9 Magnesium 2.0 Albumin 4.6 4.4 25-OH Vitamin D Total 28.3 L TSH 1.58 PTH Intact 91.6 H [facility] Medical History (Updated 08/18/24 @ 19:47 by Brianna Field MA) ADHD (attention deficit hyperactivity disorder) Arthritis Neutropenia Temporal lobe epilepsy Vitamin D deficiency Hyponatremia High serum vitamin B12 Fatigue Elevated parathyroid hormone Lightheadedness History of mammogram (~11/06/18) Constipation Seizure disorder Anxiety disorder Weakness COVID-19 vaccine series completed Restless leg syndrome Seizures Anxiety and depression Surgical History History of colonoscopy (~01/08/21) History of esophagogastroduodenoscopy (EGD) History of total left knee replacement (TKR) History of fasciotomy Family History Father No problems noted. Mother No problems noted. Brother No problems noted. Brother No problems noted. Social History Are you a primary reservoir caretaker to a significant other at home: No Do you presently have visiting nurse or other home services: No Patient Tobacco Use Status: Former Tobacco user Tobacco use type: Cigarette Advance Directives Date on File: 01/08/21 Assessment & Plan Assessment & Plan (1) Elevated parathyroid hormone: Code(s): R79.89 - Other specified abnormal findings of blood chemistry Category: Medical Plan: 54-year-old female coming in today for follow up of elevated PTH level. Chart review shows patient has had normal calcium levels ranging anywhere from 8.9-9.6 with albumin anywhere from 4.4-4.6, corrected calcium would be even lower. Normal kidney function. Most recent labs from April 2024 showed calcium of 8.9 with albumin of 4.4, corrected calcium would be 8.5, low vitamin-D level of 28.3, normal kidney function, normal thyroid function, PTH elevated at 91.6. Unclear why the PTH level was checked, patient has no history of hypercalcemia, no history of kidney stones. No history of hypercalciuria. No fragility fracture, history of osteoporosis. Most of the times least PTH elevations can be seen due to secondary hyperparathyroidism in the setting of vitamin-D deficiency or low calcium intake. Patient does have low nutritional intake of calcium. She has been started on vitamin-D 5000 units daily by PCP in April 2024 and she took this for 2 months. 5000 units daily might be too much for her since her vitamin-D was not that low, so we reduced it 5000 units every other day June 2024. I asked her to incorporate 1000 mg of calcium in the diet. Labs repeated 08/26/2024 at [facility] after patient had been supplemented adequately with vitamin-D and increase nutritional intake of calcium showed normal ionized calcium of 5, normal calcium of 9.3, albumin of 4.5, corrected calcium would be 8.8, phosphorus normal at 4.1, normal kidney function with a EGFR 95, PTH normal at 37, vitamin-D normal at 61. All of her labs were absolutely normal now with adequate vitamin-D supplementation as we would expect. No need for further follow up. Plan: -continue vitamin-D 1000 units every other day -incorporate 1000 mg of calcium in diet roughly 3 servings of calcium rich foods daily -no need for further endocrinology follow up. Plan See above Coding Level of Care Code Est Pt Level 3 (59912) Diagnoses Elevated parathyroid hormone R79.89
--- OUTSIDE RECORDS SUMMARY | 2024-10-04 12:16 | XMS_ITS | Encounter Summary ---
Author Organization [facility] Address [address] [place] [phone] Phone Care Team Providers Care Global Vp Creative + Content Marketing Name Role Phone MireyaJa DO Primary Care Provider [phone] Encounter Details Date Type Department Care Team (Late st Contact Info) Description 12/02/2022 Procedure Pass [facility], [address] [address] Social History Tobacco Use Types Packs/Day Years Used Date Smoking Tobacco: Former Cigarettes 0.3 5.2 0 10/26/1990 - 01/18/1996 Smokeless Tobacco: Never Comments:college year s Alcohol Use Standard Drinks/Week Comments Yes 5 (1 standard drink = 0.6 oz pur e alcohol) Education Answer Date Recorded Are you interested in more education? Not on aureliano e 06/13/2022 Are you concerned about learning? Not on file 06/13/2022 No 06/13/2022 No 06/13/2022 Digital Access Answer Date Recorded No 07/15/2022 No 07/15/2022 Reliable internet access at home? Not on file 07/15/2022 Device with a working camera? 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 [employer] Not on file Not on file Not on file documented as of this encounter Plan of Treatment Not on file documented as of this encounter Visit Diagnoses Not on filedocumented in this encounter Additional Health Concerns Infection Onset Date Last Indicated Resolved Time CoV-Risk 04/20/2024 04/20/2024 05/01/2024 1:21 AM EDT documented as of this encounter Care Teams [employer] Relationship Specialty Start Date End Date Ja Gomes DO [address] [place] [id number] PCP - General Internal Medicine 12/13/16 documented as of this encounter Additional Source Comments The information contained in this document represents components of the legal health record. It is not the complete legal health record.[facility]
--- OUTSIDE RECORDS SUMMARY | 2024-10-04 12:16 | XMS_ITS | Clinical Summary ---
Author Organization [address] [facility] Address [address] [place] [address] Phone Care Team Providers Care Lab Engineer Name Role Phone Ja Gomes DO Primary Care Provider [phone] Allergies No known active allergies Medications carBAMazepine [...] clobetasol. Diverticulosis of colon 09/10/2023 Seizure disorder ([facility] V24, CMS/[facility] V28) 08/18 Genital pruritus 02/06/2022 Constipation 03/17/2018 Vaginitis and vulvovaginitis 03/13/2018 Syncope and collapse 02/04/2017 Encounters Date Type Department Care Team Description 08/24/2024 3:00 PM EDT Office Visit Orthopedic Surgery - [address] [id number] Renata Rivers PA Trigger middle finger of right hand (Primary Dx) from Last 3 Months Immunizations Name Administration [...] Date Comments Anxiety state DX:Anxiety state Seizure (CMS/HCC V24, CMS/HCC V28) DX:Seizure ([facility]); COMMENT: had grand mal age [...] - Inhaled Oxygen Concentration - - Weight 63.5 kg (140 lb) 08/24/2024 2:59 PM EDT Height 165.1 cm (5' 5 ) 08/24/2024 2:59 PM EDT Body Mass Index 23.3 08/24/2024 2:59 PM EDT Plan of Treatment Health Maintenance Due Date Last Done Comments Hepatitis B Vaccines (1 of 3 - 19+ 3-dose series) 1990 Cervical Cancer Screening: Pap Smear 02/02/1992 Pneumococcal Vaccine: 50+ Years (1 of 1 - PCV) 2021 Colorectal Cancer Screening: Colonoscopy 09/12/2023 HIV Screening 09/12/2023 Hepatitis C Screening 09/12/2023 Social Influencers of Health Screening 09/12/2023 Depression Screening 02/18/2024 Influenza Vaccine (#1) 2024 , 12/05/2022, 11/19/2021, Additional history exists Breast Cancer Screening 01/24/2025 01/24/2023 Cholesterol Screening (Lipid Panel) 09/28/2028 09/29/2023 DTaP,Tdap,and Td Vaccines (2 - Td or Tdap) 09/11/2031 09/10/2021 COVID-19 Vaccine Completed 01/07/2024, 03/2023, 11/19/2021, Additional history exists Zoster Vaccines Completed 03/08/2024, 10/22/2023 HIB Vaccines Aged Out No longer eligi [...] Procedure Name Priority Date/Time Associated Diagnosis Comments AK INJECTION SINGLE TENDON SHEATH OR LIGAMENT APONEUROSIS Routine 08/24/2024 3:00 PM EDT Trigger middle finger of right hand from Last 3 Months Results * AK INJECTION SINGLE TENDON SHEATH OR LIGAMENT APONEUROSIS (08/24/2024 3:00 PM EDT) Narrative Renata Rivers PA - 08/24/2024 3:00 PM EDT CHERYL Archuleta 08/24/2024 4:43 PM Hand / UE Inj/Asp: R long A1 for trigger finger Indications: pain Details: 25 G needle, volar approach Medications: 40 mg triamcinolone acetonide 40 mg/mL; 0.5 mL lidocaine 1 % Informed Consent: Laterality: Right Relevant images/test results available and reviewed: yes Health status cleared: Yes Procedure/treatment, purpose, treatment alternatives, risks/potential complications and benefits explained: yes Risk/complications/benefits details: Risks of infection, thinning of the skin and temporary skin discoloration discussed. Discussed risks of temporary increased pain after injection and swelling and mild redness at injection site for couple days. Explained occasionally cortisone injection can cause facial flushing temporarily. Benefits pain management. For postop injection pain ice, Tylenol and/or NSAIDs if patient can take Patient questions answered: yes Patient agrees, verbalizes understanding, and wants to proceed: yes Consent given by: Patient Informed consent discussion completed by Physician/FORREST with patient: Verbal Pre-procedure timeout performed: yes us Renata LUNA IN CLINIC/BEDSIDE ORDERABLES Final Result from Last 3 Months Insurance [facility] Care Teams Lab Engineer Relationship Specialty Start Date End Date Ja Gomes DO [address] [place] [phone] PCP - General 07/16/23
== END 2024-10-04 11:20 | disposition home or self-care (01) ==
LOC: HO.ENCR 11:03
PROVIDERS: PCP Internal Medicine; Visit Provider Student in an Organized Health Care Education/Training Program
DX: R79.89 Other specified abnormal findings of blood chemistry (principal)
CPT/HCPCS: 99213

== ENCOUNTER 2024-11-24 14:21 | Outpatient (AMB) | payer BC, SELFPAY ==
--- NOTE | 2024-11-24 14:30 | A.OFFPC_ITS ---
Vital Signs 11/24/24 14:31 Height 5 ft 2.5 in Weight 136 lb BMI 24.5 BP 110/64 Blood Pressure Location Lt brachial Position Sitting Respiration 16 Pulse 46 L Pulse Source Pulse Oximeter Temp 97.3 F Temp Source Temporal Artery Scan Pulse Oximetry (%) 96 Intake Visit Reasons: physical Reed Polisher Required: No Accompanied by: Self / Same As Patient Allergies No Known Allergies (No Known Allergies*) Allergy (Verified 11/24/24 14:48) Medication List - Last Reconciled 11/24/24 by Marva Olson PA-C cholecalciferol (vitamin D3) 125 mcg PO DAILY escitalopram oxalate 20 mg PO DAILY gabapentin (Neurontin) 100 mg PO BEDTIME oxcarbazepine 300 mg PO BID Tobacco use date assessed: 11/24/24 Dental Screening Dental Screen Date: 11/24/24 Did you have a dental visit in the last 12 months?: Yes Did you have a dental problem in the last 6 months where you did not have access to dental care?: No Was dental information given to patient?: Patient has dentist HPI physical HPI Details The patient is a 54-year-old female presenting for an annual physical examination. She reports chronic constipation, occasionally requiring MiraLAX after four to five days without a bowel movement, resulting in a large bowel movement. She denies any black or bloody stools, unintentional weight loss, nausea, vomiting, chest pain, or shortness of breath. Her family history is significant for her mother having premenopausal breast cancer, although the patient tested negative for the BRCA gene. She had a colonoscopy on January 08, 2021, which revealed colonic polyps, diverticulosis, and hemorrhoids, but no episodes of diverticulitis have occurred. The patient has a history of hyponatremia, with a repeat blood test planned to monitor this condition. Previously elevated parathyroid hormone levels were normalized after endocrinology consultation and vitamin D supplementation. She is followed by Dr. Azevedo for a seizure disorder, with no seizures reported in many years. Her current medications include oxycarbamazepine, gabapentin, escitalopram, and vitamin D supplements. Preventative care measures include a flu vaccination today and a referral for a bone density test due to early menopause. She will have repeat testing for vitamin B12, folate, vitamin D, and a comprehensive panel, including cholesterol, as she has never had a cholesterol test before. [facility] Medical History (Updated 11/24/24 @ 17:26 by Marva Olson PA-C) Preventative health care Colonic polyp Diverticulosis Annual physical exam ADHD (attention deficit hyperactivity disorder) Arthritis Neutropenia Temporal lobe epilepsy Vitamin D deficiency Hyponatremia High serum vitamin B12 Fatigue Elevated parathyroid hormone Lightheadedness History of mammogram (~11/06/18) Constipation Seizure disorder Anxiety disorder Weakness COVID-19 vaccine series completed Restless leg syndrome Seizures Anxiety and depression Surgical History History of colonoscopy (~01/08/21) History of esophagogastroduodenoscopy (EGD) History of total left knee replacement (TKR) History of fasciotomy Family History Father Parkinson disease Amyloidosis Mother Breast cancer Heart attack Brother No problems noted. Brother No problems noted. Social History Housing: House Are you a primary child care to a significant other at home: No Do you presently have visiting nurse or other home services: No Patient Tobacco Use Status: Former Tobacco user Tobacco use type: Cigarette Advance Directives Date on File: 01/08/21 service: No Current occupational status: employed Cognitive needs: No Hearing needs: No Vision needs: No Questionnaire PHQ-9 Over the last 2 weeks, how often have you been bothered by any of the following problems? 1. Little interest or pleasure in doing things: not at all 2. Feeling down, depressed, or hopeless: not at all 3. Trouble falling or staying asleep, or sleeping too much: not at all 4. Feeling tired or having little energy: not at all 5. Poor appetite or overeating: not at all 6. Feeling bad about yourself - or that you are a failure or have let yourself or your family down: not at all 7. Trouble concentrating on things, such as reading the newspaper or watching television: not at all 8. Moving or speaking so slowly that other people could have noticed. Or the opposite - being so fidgety or restless that you have been moving around a lot more than usual: not at all 9. Thoughts that you would be better off or of hurting yourself in some way: not at all Total score: 0 Depression Screening Interpretation: Negative Depression Screening Done: Yes 33834 - PHQ-9 Billing: Yes Source: Developed by Drs. Ja Daley, Amanda Atwood, Maxwell Laguna and colleagues, with an educational slick from [employer]. Thrive Questionnaire Date Thrive assessed: 11/24/24 I am a: Patient What is your living situation today?: I have a steady place to live Within the past 12 months, did the food you bought not last and you didn't have the money to get more?: Never true Within the past 12 months, did you worry whether your food would run out before you got money to buy more?: Never true Do you have trouble paying for medicines?: No Do you have trouble getting transportation to medical appointments?: No Do you have trouble paying your heating and electricity bill?: No Do you have trouble taking care of your child, family member or friend?: No Do you have trouble with day-to-day activities such as bathing, preparing meals, shopping, managing finances, etc.?: No Are you currently unemployed and looking for a job?: No Are you interested in more education?: No THRIVE Score: 0 AUDIT C Alcohol Use Questionnaire (AUDIT-C) 1. How often do you have a drink containing alcohol?: 4 or more times a week 2. How many drinks containing alcohol do you have on a typical day when you are drinking?: 1 or 2 3. How often do you have six or more drinks on one occasion?: Never Total Score: 4 Score Reviewed/Action Taken: No SABRINA-7 AMB Questionnaire SABRINA-7 Date SABRINA - 7 assessed: 11/24/24 Feeling nervous, anxious, or on edge: 0 = Not at all Not being able to stop or control worryin = Not at all Worrying too much about different things: 0 = Not at all Trouble relaxin = Not at all Being so restless that it is hard to sit still: 0 = Not at all Becoming easily annoyed or irritable: 0 = Not at all Feeling afraid as if something awful might happen: 0 = Not at all Total SABRINA-7 score (0-4 normal; 5-9 mild; 10-14 moderate; 15-21 severe): 0 Source: Developed by Drs. Ja Daley, Amanda Atwood, Maxwell Laguna and colleagues, with an educational slick from [employer]. SABRINA-7 Assessment Billing SABRINA-7 Assessment Tool: SABRINA-7 Assessment 19151 Review of Systems Const Details: - Gastrointestinal: Reports chronic constipation. Denies black or bloody stools, nausea, vomiting. - Cardiovascular: Denies chest pain, orthopnea. - Respiratory: Denies shortness of breath. - Neurological: Denies seizures. All systems reviewed & are unremarkable except as noted in HPI and below Physical exam (Primary Care) Vital Signs: Last Vital Signs Temp 97.3 F 11/24/24 14:31 Pulse 46 L 11/24/24 14:31 Resp 16 11/24/24 14:31 BP 110/64 11/24/24 14:31 Pulse Ox 96 11/24/24 14:31 Care Plan Goal for BP management: <140/90 at Goal BMI result Body Mass Index 24.5 Normal BMI Tobacco/Smoking Status: Tobacco use Status Tobacco use date assessed 11/24/24 11/24/24 14:32 Patient Tobacco Use Status Former Tobacco user 11/24/24 14:32 Tobacco use type Cigarette 11/24/24 14:32 PHQ-9: PHQ-9 Score PHQ-9: Total score 0 11/24/24 15:14 Depression Screening Interpretation: Negative Thrive Assessment: Date of Thrive Assessment Date Thrive assessed 11/24/24 11/24/24 14:44 Const Other: Appearance: Alert. Oriented X3. No acute distress. Head: Normal external exam. Normocephalic. Atraumatic. Eyes: Pupils are equal, round, and reactive to light. Extraocular movements intact. Conjunctiva and sclera normal. Eyelids normal. Ears: External auditory canal normal. Tympanic membranes normal. Throat: Pharynx normal. Uvula midline. Moist mucous membranes. Neck: Normal inspection. Neck supple. Full range of motion. No adenopathy. Thyroid Normal. No meningeal signs. No neck mass noted. Cardiovascular: Normal heart rate and rhythm. Heart sound normal. No murmurs noted. Pulses normal throughout. Respiratory: No respiratory distress. Painless inspiration. Breath sounds normal. No wheezes/rales/rhonchi noted. Chest nontender. No accessory muscle usage noted or decreased air movement noted. Abdomen: Soft and nontender. Bowel sounds normal in all 4 quadrants. No distention noted. No organomegaly noted. No visible injury noted. Back: No costovertebral angle tenderness. Full range of motion noted. Skin: Skin warm and dry. Normal skin color. Normal skin turgor. No rashes/lesions/lacerations noted. Extremities: No lower extremity edema. Extremities exhibit normal range of motion. Extremities nontender. Neuro: Oriented X 3. No motor deficit. No sensory deficit. Reflexes normal. Office Procedures Flu Questionnaire Does the patient have a severe egg allergy?: No Does the patient have severe life threatening allergies?: No Does the patient have a fever or illness today?: No Has the patient ever had Guillain-Guilford Syndrome?: No Has the patient ever had any past reaction to a flu shot?: No Immunizations Fluarix [id number] (PF) 45 mcg (15 mcg x 3)/0.5 mL IM syringe Performing Provider: Marva Olson PA-C [place] [facility] [facility] [place] [facility] Administered by: IMELDA Hinojosa on 11/24/24 15:09 Dose Route Admin Location Dispensed Lot Number Expiration Date NDC Inspector Finishing 0.5 mL IM Right Deltoid 0.5 mL [id number] 08/16/25 52255-497-01 [facility] V[facility] Given Date VIS Provided VIS Publication Date 11/24/24 Single Vaccine 24 Eligibility Eligibility Date Funding Source Not [facility] Eligible 11/24/24 Private Results Reviewed Results Reviewed: - Colonoscopy (01/08/2021): Revealed colonic polyps, diverticulosis, and hemorrhoids. - Parathyroid hormone: Previously elevated, now normalized after endocrinology consultation. Coding Level of Care Code Est Pt Level 4 (40850) Est Pt Prev Care 40-64y(77862) Diagnoses Annual physical exam Z00.00 Constipation K59.00 Diverticulosis K57.90 Colonic polyp K63.5 Hyponatremia E87.1 Seizure disorder G40.909 Preventative health care Z00.00 Additional Codes SABRINA-7 Assessment Billing - SABRINA-7 Assessment Tool: SABRINA-7 Assessment 02913 ([id number]) PHQ-9 - 36877 - PHQ-9 Billing: Yes ([id number]) Assessment & Plan Assessment & Plan (1) Annual physical exam: Code(s): Z00.00 - Encounter for general adult medical examination without abnormal findings Category: Medical (2) Constipation: Code(s): K59.00 - Constipation, unspecified Category: Medical Plan: The patient reports chronic constipation, occasionally using MiraLAX after four to five days without a bowel movement. She denies any black or bloody stools, unintentional weight loss, nausea, or vomiting. (3) Diverticulosis: Code(s): K57.90 - Diverticulosis of intestine, part unspecified, without perforation or abscess without bleeding Category: Medical Plan: The colonoscopy also revealed diverticulosis, with no episodes of diverticulitis reported. (4) Colonic polyp: Code(s): K63.5 - Polyp of colon Category: Medical Plan: The patient reports chronic constipation, occasionally using MiraLAX after four to five days without a bowel movement. She denies any black or bloody stools, unintentional weight loss, nausea, or vomiting. (5) Hyponatremia: Code(s): E87.1 - Hypo-osmolality and hyponatremia Category: Medical Plan: The patient has a history of hyponatremia, with plans for repeat blood testing to monitor this condition. (6) Seizure disorder: Code(s): G40.909 - Epilepsy, unspecified, not intractable, without status epilepticus Category: Medical Plan: The patient is followed by Dr. Azevedo for a seizure disorder, with no seizures reported in many years. She is currently on oxycarbamazepine and gabapentin. (7) Preventative health care: Code(s): Z00.00 - Encounter for general adult medical examination without abnormal findings Category: Medical Plan: Preventative care measures include a flu vaccination today and a referral for a bone density test due to early menopause. She will have repeat testing for vitamin B12, folate, vitamin D, and a comprehensive panel, including cholesterol. Plan Plan Patient was informed and verbally consented to the use of an ambient scribe for clinic note documentation during this visit. 1. Chronic Constipation The patient reports chronic constipation, occasionally using MiraLAX after four to five days without a bowel movement. She denies any black or bloody stools, unintentional weight loss, nausea, or vomiting. 2. Colonic Polyps A colonoscopy performed on January 08, 2021, revealed colonic polyps. 3. Diverticulosis The colonoscopy also revealed diverticulosis, with no episodes of diverticulitis reported. 4. Hyponatremia The patient has a history of hyponatremia, with plans for repeat blood testing to monitor this condition. 5. Seizure Disorder The patient is followed by Dr. Azevedo for a seizure disorder, with no seizures reported in many years. She is currently on oxycarbamazepine and gabapentin. 6. Preventative Care Preventative care measures include a flu vaccination today and a referral for a bone density test due to early menopause. She will have repeat testing for vitamin B12, folate, vitamin D, and a comprehensive panel, including cholesterol. Orders: Orders XR DEXA axial skeleton Today M81.0 - Age-related osteoporosis without current pathological fracture Lipid Panel Today Z00.00 - Encounter for general adult medical examination without abnormal findings Comprehensive [place]. Panel Fast Today Z00.00 - Encounter for general adult medical examination without abnormal findings Vitamin B12 and Folate Today Z00.00 - Encounter for general adult medical examination without abnormal findings Vitamin D 25-OH Total Today Z00.00 - Encounter for general adult medical examination without abnormal findings Influenza [id number] Immunization Today Z23 - Encounter for immunization Patient Instructions: - Continue using MiraLAX as needed for constipation. - Follow up with endocrinology for hyponatremia monitoring. - Continue current seizure medications as prescribed. - Receive flu vaccination today. - Schedule a bone density test. - Return for repeat blood tests for vitamin B12, folate, vitamin D, and cholesterol.
[2024-11-24 14:31] VITALS: BP 110/64; PULSE 46; RESP 16; TEMP 36.3; O2SAT 96; BMI 24.5
== END 2024-11-24 15:15 | disposition home or self-care (01) ==
LOC: HO.HMCSH 14:21
PROVIDERS: PCP Internal Medicine; Visit Provider Physician Assistant Medical
DX: Z00.00 Encounter for general adult medical examination without abnormal findings (principal); K59.00 Constipation, unspecified; G40.909 Epilepsy, unspecified, not intractable, without status epilepticus; K57.90 Diverticulosis of intestine, part unspecified, without perforation or abscess without bleeding; K63.5 Polyp of colon; E87.1 Hypo-osmolality and hyponatremia; Z23 Encounter for immunization

== ENCOUNTER → 2024-11-24 14:21 | Outpatient (BNVA) | payer BC, SELFPAY | PROVIDERS: PCP Internal Medicine; Visit Provider Physician Assistant Medical | DX: Z00.00 Encounter for general adult medical examination without abnormal findings (principal); G40.909 Epilepsy, unspecified, not intractable, without status epilepticus; K59.09 Other constipation; K57.90 Diverticulosis of intestine, part unspecified, without perforation or abscess without bleeding; K63.5 Polyp of colon; M81.0 Age-related osteoporosis without current pathological fracture; E87.1 Hypo-osmolality and hyponatremia; Z23 Encounter for immunization | CPT/HCPCS: 90471; 90656; 96127 ==

== ENCOUNTER → 2025-01-18 11:52 | Outpatient (AMB) | payer BC, SELFPAY ==
--- NOTE | 2025-01-18 12:17 | A.OFFVIS_ITS ---
Intake Visit Reasons: headaches Allergies No Known Allergies (No Known Allergies*) Allergy (Verified 11/24/24 14:48) HPI Comments Details: 54 y/o woman with Temporal Lobe Epilepsy (periodes of blacking out and one grand mal seizure in her 20s), RLS and she anxiety type mood disorder. Her father suffered from bipolar disorder. She is presenting for evaluation of new-onset frequent headaches and an associated eye tic. The patient reports the onset of frequent frontal headaches about a month ago, following an episode of severe altitude sickness while traveling in [place], [place]. These headaches occur almost daily or every other day, which is a significant change from the patient's baseline of experiencing a headache only once every six months. Hytt-inm-arceulf analgesics such as Tylenol and Advil do not provide relief. Associated with the headaches, the patient has developed a new, uncontrollable eye blinking or tic, which seems to exacerbate the headache pain. The patient uses 1.50 strength reading glasses and has a coincidental appointment with an eye doctor scheduled for today. The patient has a history of early menopause, with cessation of menses at age 41, and reports a family history of early menopause in the mother. The patient denies current menopausal symptoms such as hot flashes. Past medical history is also significant for restless legs syndrome, treated with gabapentin on an as- needed basis about 2-3 nights per week, and a self-described high strung nature for which the patient takes Lexapro. The patient maintains an active lifestyle, including fast walking on a treadmill, using free weights, and hiking. The patient does not report any recent illness, stress, or dietary changes. [facility] Medical History (Updated 01/18/25 @ 12:42 by Sarita Carey MD) Preventative health care Colonic polyp Diverticulosis Annual physical exam ADHD (attention deficit hyperactivity disorder) Arthritis Neutropenia Temporal lobe epilepsy Vitamin D deficiency Hyponatremia High serum vitamin B12 Fatigue Elevated parathyroid hormone Lightheadedness History of mammogram (~11/06/18) Constipation Seizure disorder Anxiety disorder Weakness COVID-19 vaccine series completed Restless leg syndrome Seizures Anxiety and depression Surgical History History of colonoscopy (~01/08/21) History of esophagogastroduodenoscopy (EGD) History of total left knee replacement (TKR) History of fasciotomy Family History Father Parkinson disease Amyloidosis Mother Breast cancer Heart attack Brother No problems noted. Brother No problems noted. Social History Housing: House Are you a primary manager primary care to a significant other at home: No Do you presently have visiting nurse or other home services: No Patient Tobacco Use Status: Former Tobacco user Tobacco use type: Cigarette Advance Directives Date on File: 01/08/21 service: No Current occupational status: employed Cognitive needs: No Hearing needs: No Vision needs: No Review of Systems Narrative - Neurological: Reports new-onset, frequent frontal headaches for the past month. - Reports an involuntary eye tic. - Reports restless legs occurring 2-3 nights per week. - Denies history of head trauma. - Constitutional: Denies cold or flu-like symptoms. - Reports normal sleep. - Endocrine: Reports history of early menopause at age 41. - Denies menopausal symptoms such as sweating. Physical Exam Neuro Other: Mental Status: Alert and oriented to person, place, and time. Normal attention. Normal spontaneous speech, fluency, and comprehension. Cranial Nerves: CN II: Visual fournier full to confrontation, visual acuity intact. CN III, IV, : Pupils equal, round, reactive to light and accommodation. Extraocular movements are normal. CN V: Facial sensation is normal. CN VII: Facial movements symmetrical. CN VIII: Hearing intact to bedside conversation is normal. CN IX, X: Palate elevates symmetrically. CN XI: Shoulder shrug and head turn symmetrical. CN XII: Tongue midline without atrophy or fasciculations. Extrapyramidal: Full facial expressions and blinking. No rigidity. Movements are appropriate with no tremor or abnormality. Speech: Normal; no dysarthria or tremor. Assessment & Plan Assessment & Plan (1) Temporal lobe epilepsy: Comment: [place] brain [place] [facility] [place]: WNL EEG by Dr. Brian in 2004: b/l spikes and slow waves discharges EEG at [facility] [place] in Dec 2016: mild scattered background slowing. Code(s): G40.109 - Localization-related (focal) (partial) symptomatic epilepsy and epileptic syndromes with simple partial seizures, not intractable, without status epilepticus Category: Medical (2) RLS (restless legs syndrome): Code(s): G25.81 - Restless legs syndrome Category: Medical (3) Migraine without aura: Code(s): G43.009 - Migraine without aura, not intractable, without status migrainosus Category: Medical Qualifiers: Status migrainosus presence: without status migrainosus Intractability: not intractable Qualified Code(s): G43.009 - Migraine without aura, not intractable, without status migrainosus Plan Impression: 1. Temporal lobe epilepsy reasonably controlled 2. Restless legs syndrome 3. Migraine without aura probably worsened with exposure to high altitude environment 4. Underlying tendency for anxiety type mood disorder Recommendations: 1. Continue oxcarbazepine 300 mg twice a day 2. Gabapentin 100 mg 1 at night as needed for restless legs syndrome 3. Sumatriptan 50 mg 1 a day as needed for migraine 4. Reassurance and education about her situation and common sense measures to avoid and managed problems Coding Level of Care Code Est Pt Level 4 (07198) Diagnoses Temporal lobe epilepsy G40.109 RLS (restless legs syndrome) G25.81 Migraine without aura and without status migrainosus, not intractable G43.009 Status migrainosus presence: without status migrainosus Intractability: not intractable Time Spent (min) 30
--- OUTSIDE RECORDS SUMMARY | 2025-01-18 14:04 | XMS_ITS | Encounter Summary ---
Author Organization [facility] Address [address] [place] [id number] Phone Care Team Providers Care Drier Tender Name Role Phone Ja Gomes DO Primary Care Provider [phone] Encounter Details Date Type Department Care Team (Latest Contact Info) Description 12/24/2016 Transcribe Orders [address] [address] Ja Gomes DO [address] [place] [id number] Irritable bowel syndrome with constipation (Primary Dx) Social History Tobacco Use Types Packs/Day Years Used Date Smoking Tobacco: Never Alcohol Use Standard Drinks/Week Comments No 0 (1 standard drink = 0.6 oz pur e alcohol) Comments Unknown Sex and Gender Information Value Date Recorded Sex Assigned at Not on file Legal Sex Female 7:40 PM EST Gender Identity Not on file Sexual Orientation Not on file documented as of this encounter Plan of Treatment Upcoming Encounters Date Type Department Care Team (Late st Contact Info) Description 05/17/2025 4:15 PM EDT Appointment [facility] [address] [place] [address] Marva Olson PA [address] [place] [address] documented as of this encounter Procedures Procedure Name Priority Date/Time Associated Diagnosis Comments LYME SCREEN WITH REFLEX TO WESTERN BLOT, BLOOD Routine 12/24/2016 5:14 PM EST Irritable bowel syndrome with constipation documented in this encounter Results * Lyme screen with reflex to Western blot, blood (12/24/2016 5:14 PM EST) Lyme AB IgG Negative Negative [facility] Lyme AB IgM Negative Negative [facility] Blood 12/24/2016 5:14 PM EST 12/24/2016 5:16 PM EST us Ja Gomes DO LAB BLOOD BKR ORDERABLES Mohsen serena Result - Final [facility] [address] [place] [address] documented in this encounter Visit Diagnoses Diagnosis Irritable bowel syndrome with constipation- Primary Irritable bowel syndrome documented in this encounter Additional Health Concerns Infection Onset Date Last Indicated Resolved Time CoV-Risk 04/20/2024 04/20/2024 05/01/2024 1:21 AM EDT documented as of this encounter Care Teams Drier Tender Relationship Specialty Start Date End Date Ja Gomes, [address] [place] [phone] PCP - General Internal Medicine 12/13/16 documented as of this encounter Additional Source Comments The information contained in this document represents components of the legal health record. It is not the complete legal health record.[facility]
--- OUTSIDE RECORDS SUMMARY | 2025-01-18 14:04 | XMS_ITS | Encounter Summary ---
Author Organization [facility] Address [address] [place] [address] Phone Care Team Providers Care Molded Goods Inspector Trimmer Name Role Phone Mireya Ja Vicente Primary Care Provider [phone] Encounter Details Date Type Department Care Team (Late st Contact Info) Description 08/07/2017 Ancillary Orders Virtual Department [address] [place] [address] Taya Stiles MD Breast screening Social History Tobacco Use Types Packs/Day Years [...] Info) Description 05/17/2025 4:15 PM EDT Appointment [facility], Bone Density - [facility] [address] [place] [address] Marva Olson PA [address] [place] [address] documented as of this encounter Results * (ABNORMAL) BI MAMMOGRAM SCREENING WITH TOMOSYNTHESIS WITH CAD (BILATERAL) (09/09/2017 2:01 PM EDT) Anatomical Region Laterality Modality Breast Left, Breast Right, Breast Bilateral Bila teral Mammography 09/10/2017 8:19 AM EDT Impressions 09/10/2017 2:25 PM EDT RIGHT BREAST: Negative, no evidence of malignancy. Normal interval follow-up is recommended in 12 months. LEFT BREAST: Focal asymmetry in the lower inner quadrant of the left breast at 5 to 6 cm from the nipple. Spot compression tomosynthesis images and targeted ultrasound are recommended for further evaluation. BI-RADS CATEGORY: 0 - Incomplete. Need additional imaging evaluation. DENSITY: The breast tissue is extremely dense, an appearance which could obscure a lesion on mammography. RIGHT RECOMMENDATION DATE: Annual Mammography Screening LEFT RECOMMENDATION DATE: 1 Month Additional Imaging POS - [email or web address] Edited by: Dora Brizuela on 09/10/2017 8:51 AM Narrative 09/10/2017 2:25 PM EDT STUDY: Bilateral screening mammography with tomosynthesis and CAD TECHNIQUE: Bilateral full-field digital screening mammography is obtained and read in conjunction with computer-aided detection. Tomosynthesis as well as 2-D C view imaging were obtained. COMPARISON: Comparison made to multiple prior, most recent August 15, 2016, and most remote February 06, 2011. BREAST COMPOSITION: The breasts are extremely dense, which lowers the sensitivity of mammography. RIGHT BREAST: No significant masses, calcifications or other abnormalities are seen. LEFT BREAST: There is approximately 1.4 cm focal asymmetry in the lower inner quadrant of the left breast middle depth at approximately 5 to 6 cm from the nipple (best seen on the tomosynthesis MLO image 24/48 and tomosynthesis CC image 19/49). Regionally distributed round calcifications in the upper breast have been stable since 2010. No significant calcifications or other abnormalities are seen. Procedure Note Oleg Reinoso MD - 09/10/2017 STUDY: Bilateral screening mammography with tomosynthesis and CAD TECHNIQUE: Bilateral full-field digital screening mammography is obtainedand read in conjunction with computer-aided detection. Tomosynthesis aswell as 2-D C view imaging were obtained. COMPARISON: Comparison made to multiple prior, most recent August 15, 2016,and most remote February 06, 2011. BREAST COMPOSITION: The breasts are extremely dense, which lowers thesensitivity of mammography. RIGHT BREAST: No significant masses, calcifications or otherabnormalities are seen. LEFT BREAST: There is approximately 1.4 cm focal asymmetry in the lowerinner quadrant of the left breast middle depth at approximately 5 to 6 cmfrom the nipple (best seen on the tomosynthesis MLO image andtomosynthesis CC image ). Regionally distributed round calcificationsin the upper breast have been stable since 2010. No significantcalcifications or other abnormalities are seen. IMPRESSION: RIGHT BREAST: Negative, no evidence of malignancy. Normal intervalfollow-up is recommended in 12 months. LEFT BREAST: Focal asymmetry in the lower inner quadrant of the leftbreast at 5 to 6 cm from the nipple. Spot compression tomosynthesis imagesand targeted ultrasound are recommended for further evaluation. BI-RADS CATEGORY: 0 - Incomplete. Need additional imaging evaluation. DENSITY: The breast tissue is extremely dense, an appearance which couldobscure a lesion on mammography. RIGHT RECOMMENDATION DATE: Annual Mammography Screening LEFT RECOMMENDATION DATE: 1 Month Additional Imaging POS - [email or web address] Edited by: Dora Brizuela on 09/10/2017 8:51 AM Taya Stiles MD IMG MG EXAMS Final Re sult documented in this encounter Visit Diagnoses Diagnosis Breast screening Breast screening, unspecified Breast screening Breast screening, unspecified documented in this encounter Additional Health Concerns Infection Onset Date Last Indicated Resolved Time CoV-Risk 04/20/2024 04/20/2024 05/01/2024 1:21 AM EDT documented as of this encounter Care Teams Molded Goods Inspector Trimmer Relationship Specialty Start Date End Date Ja Gomes DO [address] [place] [address] PCP - General Internal Medicine 12/13/16 documented as of this encounter Additional Source Comments The information contained in this document represents components of the legal health record. It is not the complete legal health record.[facility]
--- OUTSIDE RECORDS SUMMARY | 2025-01-18 14:04 | XMS_ITS | Encounter Summary ---
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 Plan of Treatment Upcoming Encounters Date Type Department Care Team (Late st Contact Info) Description 05/17/2025 4:15 PM EDT Appointment [facility], Bone Density - [facility] [address] [place] [address] Marva Olson PA [address] [place] [address] documented as of this encounter Results * BI MAMMOGRAM SCREENING WITH TOMOSYNTHESIS WITH CAD (BILATERAL) (01/24/2023 8:34 AM EST) Anatomical Region Laterality Modality Breast Left, Breast Right, Breast Bilateral Bila teral Mammography 01/27/2023 2:26 PM EST Impressions 01/27/2023 2:27 PM EST No mammographic evidence of malignancy in either breast. Annual screening mammography is recommended. BI-RADS CATEGORY: 1 - Negative. The patient will be notified of the results and recommendations. Narrative 01/27/2023 2:27 PM EST BI MAMMOGRAM SCREENING WITH TOMOSYNTHESIS WITH CAD (BILATERAL) Additional patient information: Screening. COMPARISON: Comparison is made with relevant prior imaging. Breast composition: The breast tissue is extremely dense, which lowers the sensitivity of mammography. FINDINGS: No abnormal masses, suspicious calcifications, or other significant findings are identified mammographically in either breast. Procedure Note Palma Lawson MD - 01/27/2023 BI MAMMOGRAM SCREENING WITH TOMOSYNTHESIS WITH CAD (BILATERAL) Additional patient information: Screening. COMPARISON: Comparison is made with relevant prior imaging. Breast composition: The breast tissue is extremely dense, which lowers thesensitivity of mammography. FINDINGS: No abnormal masses, suspicious calcifications, or other significantfindings are identified mammographically in either breast. IMPRESSION: No mammographic evidence of malignancy in either breast. Annual screening mammography is recommended. BI-RADS CATEGORY: 1 - Negative. The patient will be notified of the results and recommendations. us Taya Stiles MD IMG MG EXAMS Final Re sult documented in this encounter Visit Diagnoses Diagnosis Breast screening- Primary Breast screening, unspecified Breast screening Breast screening, unspecified documented in this encounter Additional Health Concerns Infection Onset Date Last Indicated Resolved Time CoV-Risk 04/20/2024 04/20/2024 05/01/2024 1:21 AM EDT documented as of this encounter Care Teams Rug Cutter Helper Relationship Specialty Start Date End Date Ja Gomes DO [address] [place] [address] PCP - General Internal Medicine 12/13/16 documented as of this encounter Additional Source Comments The information contained in this document represents components of the legal health record. It is not the complete legal health record.[facility]
--- OUTSIDE RECORDS SUMMARY | 2025-01-18 14:04 | XMS_ITS | Encounter Summary ---
Author Organization [facility] Address [address] [place] [address] Phone Care Team Providers Care Top Dyeing Machine Tender Name Role Phone Ja Gomes DO Primary Care Provider + [phone] Reason for Referral * Physical Therapy (Routine) - Closed Specialty Diagnoses / Procedures Referred By Laura t Referred To Contact Physical Therapy Diagnoses Encounter for rehabilitation Aarti Nair PA Phone: tel: fax: [address] [address] Phone: tel: Referral ID Status Reason Start Date Expiration Date Visits Re quested Visits Authorized [id number] Closed 07/28/2018 07/28/2019 28 28 Encounter Details Date Type Department Care Team (Latest Contact Info) Description 06/30/2018 Transcribe Orders [facility] [address] [place] [address] Unknown, Unknown, Encounter for rehabilitation (Primary Dx) Social History Tobacco Use Types Packs/Day Years Used Date Smoking Tobacco: Never Smokeless Tobacco: Never Alcohol Use Standard Drinks/Week Comments No 0 (1 standard drink = 0.6 oz pur e alcohol) Comments No Sex and Gender Information Value Date Recorded Sex Assigned at Not on file Legal Sex Female 7:40 PM EST Gender Identity Not on file Sexual Orientation Not on file 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 Plan of Treatment Upcoming Encounters Date Type Department Care Team (Late st Contact Info) Description 05/17/2025 4:15 PM EDT Appointment [facility], Bone Density - [facility] [address] [place] [address] Marva Olson PA [address] [place] [address] Scheduled Referrals Name Type Priority Associated Diagnoses Orde r Schedule Ambulatory referral to [facility] Physical Therapy Outpatient Referral Routine Encounter for rehabilitation Ordered: 06/30/2018 documented as of this encounter Visit Diagnoses Diagnosis Encounter for rehabilitation- Primary documented in this encounter Additional Health Concerns Infection Onset Date Last Indicated Resolved Time CoV-Risk 04/20/2024 04/20/2024 05/01/2024 1:21 AM EDT documented as of this encounter Care Teams Top Dyeing Machine Tender Relationship Specialty Start Date End Date Ja Gomes DO [address] [place] [address] PCP - General Internal Medicine 12/13/16 documented as of this encounter Additional Source Comments The information contained in this document represents components of the legal health record. It is not the complete legal health record.[facility]
--- OUTSIDE RECORDS SUMMARY | 2025-01-18 14:04 | XMS_ITS | Encounter Summary ---
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 Plan of Treatment Upcoming Encounters Date Type Department Care Team (Late st Contact Info) Description 05/17/2025 4:15 PM EDT Appointment [facility], Bone Density - [facility] [address] [place] [address] Marva Olson PA [address] [place] [address] documented as of this encounter Visit Diagnoses Not on filedocumented in this encounter Additional Health Concerns Infection Onset Date Last Indicated Resolved Time CoV-Risk 04/20/2024 04/20/2024 05/01/2024 1:21 AM EDT documented as of this encounter Care Teams Drawbench Operator Helper Relationship Specialty Start Date End Date Ja Gomes DO [address] [place] [address] PCP - General Internal Medicine 12/13/16 documented as of this encounter Additional Source Comments The information contained in this document represents components of the legal health record. It is not the complete legal health record.[facility]
--- OUTSIDE RECORDS SUMMARY | 2025-01-18 14:04 | XMS_ITS | Encounter Summary ---
Author Organization [facility] Address [address] [place] [address] Phone Care Team Providers Care Oyster Worker Name Role Phone Ja Gomes DO Primary Care Provider + [phone] Encounter Details Date Type Department Care Team (Latest Contact Info) Description 12/16/2016 Transcribe Orders [facility] [address] [place] [address] Ja Gomes DO [address] [place] [address] Nausea (Primary Dx) Social History Tobacco Use Types [...] Info) Description 05/17/2025 4:15 PM EDT Appointment [facility], Bone Density - [facility] [address] [place] [address] Marva Olson PA [address] [place] [address] documented as of this encounter Results * (ABNORMAL) Urinalysis with sediment (12/16/2016 5:05 PM EDT) WBC 0-4(A) NONE SEEN /hpf [facility] RBC NONE SEEN NONE SEEN /hpf [facility] URINE EPITHELIAL 11-20(A) NONE SEEN [facility] MUCUS Trace(A) NONE SEEN /hpf [facility] BACTERIA Trace(A) NONE SEEN [facility] COLOR STRAW(A) Yellow [facility] CLARITY Clear [facility] GLUCOSE Negative Negative [facility] BILI Negative Negative [facility] KETONES Negative Negative [facility] SPECIFIC GRAVITY <1.005 1.005 - 1.030 [facility] BLOOD Negative Negative [facility] PH 5.5 5.0 - 8.0 [facility] Protein-UA Negative Negative [facility] NITRITE Negative Negative [facility] Leukocyte esterase, ur Negative Negative [facility] Urine (Urine) 12/16/2016 5:0 5 PM EDT 12/16/2016 7:31 PM EDT us Ja Gomes DO LAB URINE ORDERABLES Final R esult Performing Organization Address [facility]/ZIP Co de Phone Number [address] [address] * Sedimentation rate (ESR) (12/16/2016 5:05 PM EDT) Pathologist [facility] ESR 1 0 - 20 mm/h [facility] Blood 12/16/2016 5:05 PM EDT 12/16/2016 5:09 PM EDT Ja Gomes DO LAB BLOOD BKR ORDERABLES Fin al Result Performing Organization Address [facility] Co de Phone Number [address] [address] * (ABNORMAL) LFTs (hepatic panel) (12/16/2016 5:05 PM EDT) ALKALINE PHOSPHATASE 49 39 - 117 U/L [facility] TOTAL BILIRUBIN <0.2 0 - 1.2 mg/dL [facility] DIRECT BILIRUBIN <0.2 0 - 0.3 mg/dL [facility] Bilirubin (Indirect) NOT CALCULATED 0 - 1.5 mg/dL [facility] AST 17 0 - 37 U/L [facility] ALT 11 0 - 40 U/L [facility] TOTAL PROTEIN 5.9(L) 6.5 - 8.0 g/dL [facility] ALBUMIN 4.0 3.9 - 4.8 g/dL [facility] GLOBULIN 1.9 1 - 4.8 g/dL [facility] A/G Ratio 2.11 1.00 - 4.80 RATIO [facility] Blood 12/16/2016 5:05 PM EDT 12/16/2016 5:09 PM EDT Ja Gomes LAB BLOOD BKR ORDERABLES Mohsen serena Result - Final Performing Organization Address [facility] Co de Phone Number [address] [address] * Lipase (12/16/2016 5:05 PM EDT) LIPASE 36 16 - 63 U/L [facility] Blood 12/16/2016 5:05 PM EDT 12/16/2016 5:09 PM EDT Ja Gomes LAB BLOOD BKR ORDERABLES Fin al Result Performing Organization Address [facility] Co de Phone Number [address] [address] * (ABNORMAL) C-Reactive Protein (12/16/2016 5:05 PM EDT) C REACTIVE PROTEIN <0.0(L) 0 - 0.5 mg/L [facility] Blood 12/16/2016 5:05 PM EDT 12/16/2016 5:09 PM EDT Ja Gomes LAB BLOOD BKR ORDERABLES Fin al Result Performing Organization Address [facility] Co de Phone Number [address] [address] * (ABNORMAL) CBC and differential (12/16/2016 5:05 PM EDT) WBC 4.31 3.40 - 11.20 K/uL [facility] RBC 3.91 3.80 - 4.80 M/uL [facility] HGB 12.7 12.0 - 15.0 g/dL [facility] HCT 34.2(L) 36.0 - 46.0 % [facility] PLT 209 130 - 400 K/uL [facility] MCV 87.5 79.0 - 98.0 fL [facility] MCH 32.5 27.0 - 34.8 pg [facility] MCHC 37.1(H) 31.5 - 36.0 g/dL [facility] RDW 11.4 10.8 - 14.6 % [facility] MPV 10.0 9.4 - 12.4 fl [facility] NRBC 0.00 /100 WBCs [facility] ABSOLUTE NRBC 0.00 K/uL [facility] DIFF METHOD Auto [facility] NEUTS 47.4 45.30 - 77.70 % [facility] LYMPHS 35.0 12.30 - 39.70 % [facility] MONOS 8.8 4.10 - 12.80 % [facility] EOS 7.4(H) 0 - 7.2 % [facility] BASOS 1.2 0 - 2.80 % [facility] Granulocytes, immature (%) 0.2 0.0 - 0.9 % [facility] ABSOLUTE NEUTS 2.04 1.40 - 7.70 K/uL [facility] ABSOLUTE LYMPHS 1.51 0.60 - 3.20 K/uL [facility] ABSOLUTE MONOS 0.38 0.11 - 0.59 K/uL [facility] ABSOLUTE EOS 0.32 0.01 - 0.50 K/uL [facility] ABSOLUTE BASOS 0.05 0.00 - 0.08 K/uL [facility] Granulocytes, immature 0.01 0.00 - 0.05 K/uL [facility] Blood 12/16/2016 5:05 PM EDT 12/16/2016 5:09 PM EDT us Ja Gomes DO LAB BLOOD BKR ORDERABLES Fin al Result Performing Organization Address City/[facility]/ZIP Co de Phone Number [address] [address] * (ABNORMAL) Basic metabolic panel (12/16/2016 5:05 PM EDT) SODIUM 142 133 - 146 mmol/L [facility] CHLORIDE 103 96 - 108 mmol/L [facility] POTASSIUM 3.9 3.3 - 5.1 mmol/L [facility] CO2 30 21 - 35 mmol/L [facility] BUN 5(L) 6 - 19 mg/dL [facility] CREATININE 0.60 0.5 - 1.5 mg/dL [facility] GLUCOSE 91 70 - 99 mg/dL [facility] CALCIUM 8.8 8.4 - 10.3 mg/dL [facility] EGFR >60 >60 mL/min/1.7 3m2 [facility] Comment:Abnormal if <60. If patient is -E[place]ian, multiply the result by 1.21. ANION GAP 13 10 - 20 mmol/L [facility] Blood 12/16/2016 5:05 PM EDT 12/16/2016 5:09 PM EDT Ja Gomes LAB BLOOD BKR ORDERABLES Fin al Result Performing Organization Address [facility] Co de Phone Number [address] [address] * TSH (12/16/2016 5:05 PM EDT) TSH 1.88 0.27 - 4.20 uIU/mL [facility] Blood 12/16/2016 5:05 PM EDT 12/16/2016 5:09 PM EDT Ja Sternman LAB BLOOD BKR ORDERABLES Fin al Result Performing Organization Address City/[facility]/ZIP Co de Phone Number [address] [address] documented in this encounter Visit Diagnoses Diagnosis Nausea- Primary Nausea alone documented in this encounter Additional Health Concerns Infection Onset Date Last Indicated Resolved Time CoV-Risk 04/20/2024 04/20/2024 05/01/2024 1:21 AM EDT documented as of this encounter Care Teams Oyster Worker Relationship Specialty Start Date End Date Ja Gomes DO [address] [place] [address] PCP - General Internal Medicine 12/13/16 documented as of this encounter Additional Source Comments The information contained in this document represents components of the legal health record. It is not the complete legal health record.[facility]
--- OUTSIDE RECORDS SUMMARY | 2025-01-18 14:04 | XMS_ITS | Encounter Summary ---
Author Organization [facility] Address [address] [place] [address] [place] [address] Phone Care Team Providers Care Contracting Specialist Name Role Phone Mireya Ja Vicente Primary Care Provider [phone] Encounter Details Date Type Department Care Team (Late st Contact Info) Description 12/10/2024 Transcribe Orders Virtual Department [address] [place] [address] Marva Olson PA [address] [place] [address] Age-related osteoporosis without current pathological fracture (Primary Dx) Social History Tobacco Use Types Packs/Day Years Used Date Smoking Tobacco: Former Cigarettes 0.3 6.1 0 10/26/1990 - 01/18/1996 Smokeless Tobacco: Never [...] 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 Plan of Treatment Upcoming Encounters Date Type Department Care Team (Late st Contact Info) Description 05/17/2025 4:15 PM EDT Appointment [facility], Bone Density - [facility] [address] [place] [address] Marva Olson PA [address] [place] [address] Scheduled Orders Name Type Priority Associated Diagnoses Orde r Schedule DXA Screening Imaging Routine Age-related osteoporosis without current pathological fracture Expected: 01/09/2025, Expires: 12/10/2025 documented as of this encounter Visit Diagnoses Diagnosis Age-related osteoporosis without current pathological fracture- Primary documented in this encounter Care Teams Contracting Specialist Relationship Specialty Start Date End Date Ja Gomes DO [address] [place] [id number] PCP - General Internal Medicine 12/13/16 documented as of this encounter Additional Source Comments The information contained in this document represents components of the legal health record. It is not the complete legal health record.[facility]
--- OUTSIDE RECORDS SUMMARY | 2025-01-18 14:04 | XMS_ITS | Encounter Summary ---
Author Organization [facility] Address [address] [place] [address] Phone Care Team Providers Care Choreography Director Name Role Phone MireyaJa DO Primary Care Provider + [phone] Encounter Details Date Type Department Care Team (Late st Contact Info) Description 10/19/2019 Procedure Pass [address] [address] Social History Tobacco Use Types Packs/Day Years Used Date Smoking Tobacco: Never Smokeless Tobacco: Never Alcohol Use Standard Drinks/Week Comments Yes 0 (1 standard drink = 0.6 oz pur e alcohol) Comments No Sex and Gender Information Value Date Recorded Sex Assigned at Not on file Legal Sex Female 7:40 PM EST Gender Identity Not on file Sexual Orientation Not on file 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 Plan of Treatment Upcoming Encounters Date Type Department Care Team (Late st Contact Info) Description 05/17/2025 4:15 PM EDT Appointment [address] [address] Marva Olson PA [address] [place] [address] documented as of this encounter Visit Diagnoses Not on filedocumented in this encounter Additional Health Concerns Infection Onset Date Last Indicated Resolved Time CoV-Risk 04/20/2024 04/20/2024 05/01/2024 1:21 AM EDT documented as of this encounter Care Teams Choreography Director Relationship Specialty Start Date End Date Ja Gomes DO [address] [place] [id number] PCP - General Internal Medicine 12/13/16 documented as of this encounter Additional Source Comments The information contained in this document represents components of the legal health record. It is not the complete legal health record.[facility]
--- OUTSIDE RECORDS SUMMARY | 2025-01-18 14:04 | XMS_ITS | Encounter Summary ---
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 file documented as of this encounter Plan of Treatment Upcoming Encounters Date Type Department Care Team (Late st Contact Info) Description 05/17/2025 4:15 PM EDT Appointment [facility], Bone [facility] [address] [place] [address] Marva Olson PA [address] [place] [address] documented as of this encounter Results * BI MAMMOGRAM SCREENING WITH TOMOSYNTHESIS WITH CAD (BILATERAL) (11/06/2018 11:38 AM EDT) Anatomical Region Laterality Modality Breast Left, Breast Right, Breast Bilateral Bila teral Mammography 11/06/2018 5:26 PM EDT Impressions 11/06/2018 5:33 PM EDT No mammographic signs of malignancy. Annual screening is recommended. BI-RADS CATEGORY: 2 - Benign finding. DENSITY: The breast tissue is extremely dense, an appearance which could obscure a lesion on mammography. POS - [id number] Narrative 11/06/2018 5:33 PM EDT Bilateral mammography is performed in conjunction with computed aided detection. 3-D tomography along with 2-D C view imaging was also performed. Comparison made to previous dated as far back as 05/05/2012 and as recent as 09/09/2017. Regionally distributed lucent centered calcifications with benign characteristics on the left are stable. No suspicious masses, areas of architectural distortion or suspicious microcalcifications. Procedure Note Charles Griffin MD - 11/06/2018 Bilateral mammography is performed in conjunction with computed aideddetection. 3-D tomography along with 2-D C view imaging was alsoperformed. Comparison made to previous dated as far back as 05/05/2012 andas recent as 09/09/2017. Regionally distributed lucent centered calcifications with benigncharacteristics on the left are stable. No suspicious masses, areas ofarchitectural distortion or suspicious microcalcifications. IMPRESSION: No mammographic signs of malignancy. Annual screening is recommended. BI-RADS CATEGORY: 2 - Benign finding. DENSITY: The breast tissue is extremely dense, an appearance which couldobscure a lesion on mammography. POS - [id number] Ja Gomes DO IMG MG EXAMS Final Result documented in this encounter Visit Diagnoses Diagnosis Breast screening Breast screening, unspecified Breast screening Breast screening, unspecified documented in this encounter Additional Health Concerns Infection Onset Date Last Indicated Resolved Time CoV-Risk 04/20/2024 04/20/2024 05/01/2024 1:21 AM EDT documented as of this encounter Care Teams Middleware Engineer Relationship Specialty Start Date End Date Ja Gomes DO [address] [place] [address] PCP - General Internal Medicine 12/13/16 documented as of this encounter Additional Source Comments The information contained in this document represents components of the legal health record. It is not the complete legal health record.[facility]
--- OUTSIDE RECORDS SUMMARY | 2025-01-18 14:04 | XMS_ITS | Encounter Summary ---
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 documented as of this encounter Plan of Treatment Upcoming Encounters Date Type Department Care Team (Late st Contact Info) Description 05/17/2025 4:15 PM EDT Appointment [facility], Bone [facility] [address] [place] [address] Marva Olson PA [address] [place] [phone] documented as of this encounter Results * BI MAMMOGRAM SCREENING WITH TOMOSYNTHESIS WITH CAD (BILATERAL) (11/08/2019 9:03 AM EDT) Anatomical Region Laterality Modality Breast Left, Breast Right, Breast Bilateral Bila teral Mammography 11/08/2019 6:30 PM EDT Impressions 11/08/2019 6:33 PM EDT BILATERAL BREASTS: Negative, no evidence of malignancy. Normal interval follow- up is recommended in 12 months. BI-RADS: BI-RADS CATEGORY: 1 - Negative. DENSITY: The breast tissue is extremely dense, which lowers the sensitivity of mammography. Narrative 11/08/2019 6:33 PM EDT STUDY: Bilateral screening mammography with tomosynthesis and CAD TECHNIQUE: Bilateral full-field digital screening mammography is obtained and read in conjunction with computer-aided detection. Tomosynthesis as well as 2-D C view imaging were obtained. COMPARISON: Comparison made to multiple prior, most recent November 06, 2018, and most remote June 07, 2013. BREAST COMPOSITION: The breasts are extremely dense, which lowers the sensitivity of mammography. BILATERAL BREASTS: No significant masses, calcifications or other abnormalities are seen. Procedure Note Oleg Reinoso MD - 11/08/2019 STUDY: Bilateral screening mammography with tomosynthesis and CAD TECHNIQUE: Bilateral full-field digital screening mammography is obtainedand read in conjunction with computer-aided detection. Tomosynthesis aswell as 2-D C view imaging were obtained. COMPARISON: Comparison made to multiple prior, most recent October, and most remote June 07, 2013. BREAST COMPOSITION: The breasts are extremely dense, which lowers thesensitivity of mammography. BILATERAL BREASTS: No significant masses, calcifications or otherabnormalities are seen. IMPRESSION: BILATERAL BREASTS: Negative, no evidence of malignancy. Normal intervalfollow-up is recommended in 12 months. BI-RADS: BI-RADS CATEGORY: 1 - Negative. DENSITY: The breast tissue is extremely dense, which lowers thesensitivity of mammography. Taya Stiles MD IMG MG EXAMS Final Re sult documented in this encounter Visit Diagnoses Diagnosis Breast screening Breast screening, unspecified Breast screening Breast screening, unspecified documented in this encounter Additional Health Concerns Infection Onset Date Last Indicated Resolved Time CoV-Risk 04/20/2024 04/20/2024 05/01/2024 1:21 AM EDT documented as of this encounter Care Teams Audit Clerk Relationship Specialty Start Date End Date Ja Gomes DO [address] [place] [id number] PCP - General Internal Medicine 12/13/16 documented as of this encounter Additional Source Comments The information contained in this document represents components of the legal health record. It is not the complete legal health record.[facility]
--- OUTSIDE RECORDS SUMMARY | 2025-01-18 14:04 | XMS_ITS | Encounter Summary ---
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 Wish to be (Past 1 Month) No 022 1:15 PM EDT Charles Ackerman, RN 2. Non-Specific Active Suici cheikh Thoughts (Past 1 Month) No 09/09/2021 1:15 PM EDT Ackerman, Shahbaz h W, RN 6. Suicidal Behavior (Lifetime) No 2 1:15 PM EDT Charles Ackerman RN documented as of this encounter Plan of Treatment Upcoming Encounters Date Type Department Care Team (Late st Contact Info) Description 05/17/2025 4:15 PM EDT Appointment [facility], Bone [facility] [address] [place] [address] Marva Olson PA [address] [place] [address] documented as of this encounter Visit Diagnoses Not on filedocumented in this encounter Additional Health Concerns Infection Onset Date Last Indicated Resolved Time CoV-Risk 04/20/2024 04/20/2024 05/01/2024 1:21 AM EDT documented as of this encounter Care Teams Cartographic Aide Relationship Specialty Start Date End Date Ja Gomes DO [address] [place] [phone] PCP - General Internal Medicine 12/13/16 documented as of this encounter Additional Source Comments The information contained in this document represents components of the legal health record. It is not the complete legal health record.[facility]
--- OUTSIDE RECORDS SUMMARY | 2025-01-18 14:04 | XMS_ITS | Clinical Summary ---
Author Organization [facility] Address [address] [place] [phone] Phone Care Team Providers Care Patient Services Coordinator Name Role Phone Ja Gomes DO Primary Care Provider [phone] Allergies No known active allergies Medications carBAMazepine (TEGRETOL XR) 200 MG 12 hr tablet taking 500 mg twice daily Active escitalopram oxalate (LEXAPRO) 20 MG tablet Take 20 mg by mouth daily. Active estradioL (ESTRACE) 0.01 % (0.1 mg/gram) vaginal creamIndicatio ns:Atrophic vaginitis PLACE 0.5 GRAM VAGINALLY DAILY FOR 14 DAYS, THEN 0.5 GRAM 2 TIMES A WEEK. 42.5 g 3 04/22/19 25 Active docusate sodium (COLACE) 100 MG capsule Take 100 mg by mouth 3 (three) times a day as needed for constipation. 025 Discontin ued(No longer taking) clotrimazole-b etamethasone (LOTRISONE) cream as needed. 06/08/19 21 025 Discontin ued(No longer taking) psyllium seed, with dextrose, (FIBER ORAL) Take by mouth. 025 Discontin ued(No longer taking) triamcinolone acetonide 0.1 % ointmentIndica tions:Vulvar irritation Apply thin film topically twice a day to affected area as needed. 30 g 11/11/19 21 025 Discontin ued(No longer taking) lidocaine (LIDAMANTLE) 3 % Crea Apply topically 3 (three) times a day. Compound cream: Nifedipine 0.2%, Lidocaine 3%, Hydrocortisone 3%. Apply small amount to inside of anus three times daily 60 g 1 11/22/19 Discontin ued(No longer taking) MULTIVITAMIN ORAL Take by mouth. Discontin ued(No longer taking) cholecalcifero l, vitamin D3, (VITAMIN D3 ORAL) Take by mouth. Discontin ued(No longer taking) nystatin-triam cinolone ointmentIndica tions:Genital pruritus Apply thin film to affected areas twice weekly. 30 g 02/07/20 Discontin ued(No longer taking) amoxicillin (AMOXIL) 500 MG capsule Take 500 mg by mouth. 01/29/20 Discontin ued(No longer taking) azithromycin (ZITHROMAX) 250 MG tablet TAKE 2 TABLETS BY MOUTH TODAY, THEN TAKE 1 TABLET DAILY FOR 4 DAYS DIRECTED 02/02/20 Discontin ued(No longer taking) Active Problems Problem Noted Date Diagnosed Date Lichen sclerosus et atrophicus of the vulva 05/2023 Overview (10/22/2023): Presumptive diagnosis. No biopsy. Pale vulvar skin, joslyn-clitoral irritation, mild loss/agglutination of right labia minora. Good response to clobetasol. Diverticulosis of colon 09/10/2023 Family history of malignant neoplasm of breast 0 09/10/2023 Seizure disorder 09/10/2023 Genital pruritus 02/06/2022 Assessment & Plan (02/06/2022 12:43 PM EST): Her exam is overall stable. She has been using a separate steroid ointment and nystatin ointment on occasion. I have combined the 2 into one formulation which will hopefully be covered by the insurance. Constipation 03/17/2018 Assessment & Plan (03/17/2018 9:19 AM EST): Suggested regular exercise. :may try small bowl of bran cereal bid. Vaginitis and vulvovaginitis 03/13/2018 Assessment & Plan (03/13/2018 9:36 PM EST): Again with few yeast noted on wet mount. Exam findings reviewed. Vaginal culture sent. Recommend repeat course of Diflucan with two doses in addition to trial of Mycolog ointment. Application instructions reviewed. Plan to follow up if symptoms do not improve. Syncope and collapse 02/04/2017 Encounters Date Type Department Care Team Description 12/30/2024 10:40 AM EST Office Visit [facility] [address] [place] [address] Sam Hernadez MD Encounter for gynecological examination without abnormal finding (Primary Dx); Screening for cervical cancer 12/10/2024 Transcribe Orders Virtual Department [address] [place] [address] Marva Olson PA Age-related osteoporosis without current pathological fracture (Primary Dx) from Last 3 Months Immunizations Immunization Administration Dates Next Due COVID-19 (Pre-12/09) Dale Vaccine, [id number], PF 04/25/2020 Influenza Quadrivalent MDCK Preservative Free IM 12/06/2017 Influenza Quadrivalent Preservative Free IM 09/17,01/08/2019,12/08/2015 Family History Medical History Relation Comments Anxiety disorder Father Bipolar disorder Father Breast cancer Mother post menopausal and was on Tamoxifen Breast cancer Paternal Grandmother Relation Status Comments Father Alive Maternal Grandmother Mother Alive Paternal Grandmother Social History Tobacco Use Types Packs/Day Years Used Date Smoking Tobacco: Former Cigarettes 0.3 6.1 0 10/26/1990 - 01/18/1996 Smokeless Tobacco: Never Tobacco Cessation:Counseling Given: Not Answered 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:college 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 Alcohol Use Standard Drinks/Week [...] 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 Not on file Last Filed Vital Signs Vital Sign Reading Time Taken Comments Blood Pressure 100/62 12/30/2024 10:57 AM EST Pulse 57 04/20/2024 12:58 PM EST Temperature 36.7 C (98.1 F) 04/20/2024 12:58 PM EST Respiratory Rate 16 04/20/2024 12:58 PM EST Oxygen Saturation 97% 04/20/2024 12:58 PM EST Inhaled Oxygen Concentration - - Weight 61.8 kg (136 lb 3.2 oz) 12/30/2024 10:57 AM EST Height 165.1 cm (5' 5 ) 12/30/2024 10:57 AM EST Body Mass Index 22.66 12/30/2024 10:57 AM EST Plan of Treatment Upcoming Encounters Date Type Department Care Team (Late st Contact Info) Description 05/17/2025 4:15 PM EDT Appointment [facility], Bone Density [address] [address] Marva Olson PA [address] [place] [address] Health Maintenance Due Date Last Done Comments DEPRESSION SCREENING 1983 HEPATITIS C SCREENING 1989 HIV ONE-TIME SCREENING (18-65 YEARS) 1989 COLOGUARD 02/02/2016 COLONOSCOPY 02/02/2016 COLORECTAL CANCER SCREENING 02/02/2016 FIT TEST 02/02/2016 FOBT 02/02/2016 SIGMOIDOSCOPY 02/02/2016 VIRTUAL COLONOSCOPY 02/02/2016 CARBAMAZEPINE (TEGRETOL) LEVEL 12/02/2018 12/02/2017, 12/13/2016 PNEUMOCOCCAL VACCINES (50+ years) (1 of 1 - PCV) 2021 MAMMOGRAM 09/15/2026 09/15/2024, 09/2022, 01/07/2022, Additional history exists LIPID PANEL 09/28/2028 09/29/2023, 04/2022, 09/28/2021 PAP SMEAR 12/30/2029 12/30/2024, 02/18, 03/17/2018 Adult Td,Tdap Booster 09/11/2031 09/10/2021 RSV VACCINE (1 - 1-dose 75+ series) 2046 ZOSTER VACCINES Completed 03/08/2024, 10/22/2023 INFLUENZA VACCINE Completed 11/24/2024, , 12/05/2022, Additional history exists COVID-19 VACCINE Completed 12/09/2024, , 02/18/2023, Additional history exists SMOKING STATUS SCREENING (Once After 26 Yrs) Completed 12/30/2024 HEPATITIS A VACCINES Aged Out No long er eligible based on patient's age to complete this topic HIB VACCINES Aged Out No longer eligi ble based on patient's age to complete this topic MENINGOCOCCAL VACCINES (ACWY) Aged Out No longer eligible based on patient's age to complete this topic MENINGOCOCCAL VACCINES (B) Aged Out N o longer eligible based on patient's age to complete this topic Medical Devices Not on file Procedures Procedure Name Priority Date/Time Associated Diagnosis Comments PAP TEST Routine 12/30/2024 12:32 PM EST Screening for cervical cancer Encounter for gynecological examination without abnormal finding CERVICAL CANCER SCREENING Routine 12/30/2024 12:32 PM EST Screening for cervical cancer Encounter for gynecological examination without abnormal finding GENETIC PROBE AMPLIFICATION FOR HUMAN PAPILLOMAVIRUS Routine 12/30/2024 12:32 PM EST Screening for cervical cancer Encounter for gynecological examination without abnormal finding BI MAMMOGRAM SCREENING WITH TOMOSYNTHESIS WITH CAD (BILATERAL) Routine 09/15/2024 11:22 AM EDT Visit for screening mammogram LIPID PANEL Routine 09/29/2023 9:13 AM EDT Encounter for general adult medical examination without abnormal findings Generalized anxiety disorder Seizure disorder Restless legs syndrome (RLS) Constipation, unspecified constipation type CARBAMAZEPINE (TEGRETOL) LEVEL Routine 12/02/2017 4:06 PM EDT Temporal lobe epilepsy from Last 3 Months or Most Recently Relevant to Health Maintenance Results * Human Papillomavirus (HPV), Nucleic Acid Amplification (12/30/2024 12:32 PM EST) HPV 16 Negative 01/06/2025 4:18 PM EST [facility] HPV 18 Negative 01/06/2025 4:18 PM EST [facility] HPV 45 Negative 01/06/2025 4:18 PM EST [facility] HPV 31 Negative 01/06/2025 4:18 PM EST [facility] HPV 51 Negative 01/06/2025 4:18 PM EST [facility] HPV 52 Negative 01/06/2025 4:18 PM EST [facility] HPV 33, 58 Negative 01/06/2025 4:18 PM EST [facility] HPV 35, 39, 68 Negative 01/06/2025 4:18 PM EST [facility] HPV 56, 59, 66 Negative 01/06/2025 4:18 PM EST [facility] HPV Disclaimer: Performed by real-time polymerase chain reaction (PCR) at [address] using the FDA-approved [employer] Onclarity HPV Assay with extended genotyping. Uses of the assay in scenarios other than those approved by the FDA should be considered off-label use. The accuracy and precision of this test for all other off-label specimen sources has been verified in the Cytopathology Laboratory of the [facility] and has not been cleared or approved by the U.S. Food and Drug Administration. Clinical correlation is advised. The assay assesses the E6/E7 DNA target and utilizes human beta globin as an internal control. Cytology and HPV testing are screening assays and should not be used as the sole means of detecting cancer. False-positives and false-negatives can occur. 01/06/2025 4:18 PM EST [facility] Pap Collection (Cervix) 12/30/2024 12:32 PM EST 12/31/2024 9:41 AM EST us Sam Hernadez MD LAB GENERAL ORDERABLES Final Res ult [address] [address] * Pap Test (12/30/2024 12:32 PM EST) Final Diagnosis A. PAP TEST: CERVIX SPECIMEN ADEQUACY: Satisfactory for evaluation, transformation zone indeteriminate due to atrophy INTERPRETATION: Negative For Intraepithelial Lesion or Malignancy. HPV RESULTS: HPV 16: Negative HPV 18: Negative HPV 45: Negative HPV 31: Negative HPV 51: Negative HPV 52: Negative HPV 33, 58: Negative HPV 35, 39, 68: Negative HPV 56, 59, 66: Negative 01/06/2025 4:18 PM EST [facility] at 1618 EST Reviewed by KATELYNN Hall(ASCP) Pap Methodology This specimen was successfully pre-screened using the [employer] ThinPrep Imaging System. Selected fournier from the wood router were reviewed by a Magazine Keeper. If indicated, this case was reviewed by a Pathologist. The Pap test is a screening test primarily for detecting cervical Squamous Cell Carcinoma and its precursors. The test has an inherent but low probability of error, with liquid-based methods having a reported false negative rate of about 2%. Regular sampling and follow-up of unexplained clinical signs and symptoms are recommended to minimize false negative results. 01/06/2025 4:18 PM [facility] Clinical History ICD-10: Screening for cervical cancer ICD-10: Encounter for gynecological examination without abnormal finding 01/06/2025 4:18 PM [facility] LMP? N/A 01/06/2025 4:18 PM [facility] Gross Description A. PAP TEST: CERVIX: 1 Preservcyt vial received labeled with two patient identifiers. 1 ThinPrep slide prepared. 01/06/2025 4:18 PM EST [facility] A. Adequacy Satisfactory for evaluation, transformation zone indeteriminate due to atrophy 01/06/2025 4:18 PM [facility] A. Interpretation Negative For Intraepithelial Lesion or Malignancy. 01/06/2025 4:18 PM [facility] Pap Collection (Cervix) 12/30/2024 12:32 PM EST 12/30/2024 12:32 PM EST us Sam Hernadez MD LAB CYTOLOGY ORDERABLES Final Re sult [address] [address] * BI MAMMOGRAM SCREENING WITH TOMOSYNTHESIS WITH CAD (BILATERAL) (09/15/2024 11:22 AM EDT) Anatomical Region Laterality Modality Breast Left, Breast Right, Breast Bilateral Bila teral Mammography 09/16/2024 1:31 PM EDT Impressions 09/16/2024 1:33 PM EDT No mammographic evidence of malignancy in either breast. Annual screening mammography is recommended. BI-RADS 1 NEGATIVE The patient will be notified of the results and recommendations. Narrative 09/16/2024 1:33 PM EDT BI MAMMOGRAM SCREENING WITH TOMOSYNTHESIS WITH CAD (BILATERAL) Additional patient information: Screening. COMPARISON: Comparison is made with relevant prior imaging. Breast composition: The breasts are extremely dense, which lowers the sensitivity of mammography. FINDINGS: No abnormal masses, suspicious calcifications, or other significant findings are identified mammographically in either breast. Procedure Note Ml Sampson MD - 09/16/2024 BI MAMMOGRAM SCREENING WITH TOMOSYNTHESIS WITH CAD (BILATERAL) Additional patient information: Screening. COMPARISON: Comparison is made with relevant prior imaging. Breast composition: The breasts are extremely dense, which lowers thesensitivity of mammography. FINDINGS: No abnormal masses, suspicious calcifications, or other significantfindings are identified mammographically in either breast. IMPRESSION: No mammographic evidence of malignancy in either breast. Annual screening mammography is recommended. BI-RADS 1 NEGATIVE The patient will be notified of the results and recommendations. us Ja Gomes DO IMG MG EXAMS Final Result * (ABNORMAL) Lipid panel (09/29/2023 9:13 AM EDT) HDL 113 mg/dL [facility] Comment: Interpretation <40 mg/dL: Low HDL cholesterol (major risk factor for CHD) Greater than or equal to 60 mg/dL: High HDL cholesterol ( negative risk factor for CHD) HDL - cholesterol is affected by a number of factors, e.g. smoking, excerise, hormones, sex and age. CHOLESTEROL 251(H) 0 - 240 mg/dL [facility] TRIGLYCERIDES 43 30 - 160 mg/dL [facility] LDL 129 50 - 129 mg/dL [facility] Comment: LDL levels in terms of risk for coronary heart disease: <100 mg/dL: Optimal 100-129 mg/dL: Near or above optimal 130-159 mg/dL: Borderline high 160-189 mg/dL: High >190 mg/dL: Very High CARDIAC RISK RATIO 2.2(L) 3.3 - 4.4 C [facility] Blood 09/29/2023 9:13 AM EDT 09/29/2023 9:16 AM EDT us Ja Gomes DO LAB BLOOD BKR ORDERABLES Fin al Result Performing Organization Address [facility]/ZIP Co de Phone Number [address] [phone] * (ABNORMAL) CARBAMAZEPINE (TEGRETOL) LEVEL (12/02/2017 4:06 PM EDT) CARBAMAZEPINE 7.2(L) 8.0 - 12.0 ug/mL [facility] Blood 12/02/2017 4:06 PM EDT 12/02/2017 4:10 PM EDT Sarita Carey MD LAB BLOOD ORDERABLES F inal Result Performing Organization Address City/[facility]/ZIP Co de Phone Number [address] [phone] from Last 3 Months or Most Recently Relevant to Health Maintenance [facility]PO EPO [facility] PPO EPO [facility] PPO EPO [facility] PPO EPO Care Teams Patient Services Coordinator Relationship Specialty Start Date End Date Ja Gomes DO [address] [place] [phone] PCP - General Internal Medicine 12/13/16 Additional Source Comments The information contained in this document represents components of the legal health record. It is not the complete legal health record.[facility]
--- OUTSIDE RECORDS SUMMARY | 2025-01-18 14:04 | XMS_ITS | Encounter Summary ---
Author Organization [facility] Address [address] [place] [phone] Phone Care Team Providers Care Inventory Associate And Driver Name Role Phone Mireya Ja Cinthia GREGORIO Primary Care Provider [phone] Encounter Details Date Type Department Care Team (Late st Contact Info) Description 09/11/2017 Ancillary Orders Virtual Department [address] [place] [id number] Taya Stiles MD Abnormal mammogram Social History Tobacco Use Types Packs/Day Years [...] Info) Description 05/17/2025 4:15 PM EDT Appointment [facility], Bone Density [facility] [address] [place] [address] Marva Olson PA [address] [place] [address] documented as of this encounter Results * BI US BREAST LIMITED (LEFT) (09/16/2017 3:42 PM EDT) Anatomical Region Laterality Modality Breast Left, Breast Bilateral Left Ul trasound 09/16/2017 3:16 PM EDT Impressions 09/16/2017 3:40 PM EDT Follow-up mammography and ultrasonography failed to identify any focal findings of concern in the left breast. No findings of concern for malignancy are identified. The patient can resume routine mammography. The results were given to the patient at the time of the examination. BI-RADS CATEGORY: 1 - Negative. DENSITY: The breast tissue is heterogeneously dense, an appearance which lowers the sensitivity of mammography. S/S: Follow-up asymmetric density left breast POS [id number] Narrative 09/16/2017 3:40 PM EDT Full field digital mammography was obtained with computer-aided detection. There is heterogeneous fibroglandular density evident in the breast. 2-D C view images obtained as well as tomosynthesis images in two projections of the left breast. Spot compression craniocaudad and MLO views are obtained in 2-D and 3-D acquisitions. Comparison with prior imaging from 09/09/2017 is made with older imaging dating back as far as 02/06/2011 also reviewed. The exam is performed because of asymmetric density in the inner inferior left breast. Follow-up views disclose findings consistent with asymmetric breast tissue without discrete mass lesion or adverse features noted. No suspicious cluster calcifications, skin changes, or architectural distortion is seen. Subsequent ultrasound of the area of concern is obtained. In the lower inner left breast on ultrasonography no adverse features are seen. No mass lesion or architectural distortion is evident. Procedure Note Shreyas Zhou MD - 09/16/2017 Full field digital mammography was obtained with computer-aided detection.There is heterogeneous fibroglandular density evident in the breast. 2-DC view images obtained as well as tomosynthesis images in two projectionsof the left breast. Spot compression craniocaudad and MLO views areobtained in 2-D and 3-D acquisitions. Comparison with prior imaging from 09/09/2017 is made with older imagingdating back as far as 02/06/2011 also reviewed. The exam is performed because of asymmetric density in the inner inferiorleft breast. Follow-up views disclose findings consistent with asymmetricbreast tissue without discrete mass lesion or adverse features noted. Nosuspicious cluster calcifications, skin changes, or architecturaldistortion is seen. Subsequent ultrasound of the area of concern is obtained. In the lowerinner left breast on ultrasonography no adverse features are seen. No masslesion or architectural distortion is evident. IMPRESSION: Follow-up mammography and ultrasonography failed to identify any focalfindings of concern in the left breast. No findings of concern formalignancy are identified. The patient can resume routine mammography. The results were given to the patient at the time of the examination. BI-RADS CATEGORY: 1 - Negative. DENSITY: The breast tissue is heterogeneously dense, an appearance whichlowers the sensitivity of mammography. S/S: Follow-up asymmetric density left breast POS [id number] us Taya Stiles MD IMG US BREAST Final Re sult * BI MAMMOGRAM DIAGNOSTIC WITH TOMOSYNTHESIS NO CAD (LEFT) (09/16/2017 3:13 PM EDT) Anatomical Region Laterality Modality Breast Left Left Mammography 09/16/2017 3:16 PM EDT Impressions 09/16/2017 3:40 PM EDT Follow-up mammography and ultrasonography failed to identify any focal findings of concern in the left breast. No findings of concern for malignancy are identified. The patient can resume routine mammography. The results were given to the patient at the time of the examination. BI-RADS CATEGORY: 1 - Negative. DENSITY: The breast tissue is heterogeneously dense, an appearance which lowers the sensitivity of mammography. S/S: Follow-up asymmetric density left breast POS [id number] Narrative 09/16/2017 3:40 PM EDT Full field digital mammography was obtained with computer-aided detection. There is heterogeneous fibroglandular density evident in the breast. 2-D C view images obtained as well as tomosynthesis images in two projections of the left breast. Spot compression craniocaudad and MLO views are obtained in 2-D and 3-D acquisitions. Comparison with prior imaging from 09/09/2017 is made with older imaging dating back as far as 02/06/2011 also reviewed. The exam is performed because of asymmetric density in the inner inferior left breast. Follow-up views disclose findings consistent with asymmetric breast tissue without discrete mass lesion or adverse features noted. No suspicious cluster calcifications, skin changes, or architectural distortion is seen. Subsequent ultrasound of the area of concern is obtained. In the lower inner left breast on ultrasonography no adverse features are seen. No mass lesion or architectural distortion is evident. Procedure Note Shreyas Zhou MD - 09/16/2017 Full field digital mammography was obtained with computer-aided detection.There is heterogeneous fibroglandular density evident in the breast. 2-DC view images obtained as well as tomosynthesis images in two projectionsof the left breast. Spot compression craniocaudad and MLO views areobtained in 2-D and 3-D acquisitions. Comparison with prior imaging from 09/09/2017 is made with older imagingdating back as far as 02/06/2011 also reviewed. The exam is performed because of asymmetric density in the inner inferiorleft breast. Follow-up views disclose findings consistent with asymmetricbreast tissue without discrete mass lesion or adverse features noted. Nosuspicious cluster calcifications, skin changes, or architecturaldistortion is seen. Subsequent ultrasound of the area of concern is obtained. In the lowerinner left breast on ultrasonography no adverse features are seen. No masslesion or architectural distortion is evident. IMPRESSION: Follow-up mammography and ultrasonography failed to identify any focalfindings of concern in the left breast. No findings of concern formalignancy are identified. The patient can resume routine mammography. The results were given to the patient at the time of the examination. BI-RADS CATEGORY: 1 - Negative. DENSITY: The breast tissue is heterogeneously dense, an appearance whichlowers the sensitivity of mammography. S/S: Follow-up asymmetric density left breast POS [id number] Taya Stiles MD IMG MG EXAMS Final Re sult documented in this encounter Visit Diagnoses Diagnosis Abnormal mammogram Abnormal mammogram, unspecified Abnormal mammogram Abnormal mammogram, unspecified Abnormal mammogram Abnormal mammogram, unspecified documented in this encounter Additional Health Concerns Infection Onset Date Last Indicated Resolved Time CoV-Risk 04/20/2024 04/20/2024 05/01/2024 1:21 AM EDT documented as of this encounter Care Teams Inventory Associate And Driver Relationship Specialty Start Date End Date Ja Gomes DO [address] [place] [id number] PCP - General Internal Medicine 12/13/16 documented as of this encounter Additional Source Comments The information contained in this document represents components of the legal health record. It is not the complete legal health record.[facility]
--- OUTSIDE RECORDS SUMMARY | 2025-01-18 14:04 | XMS_ITS | Encounter Summary ---
Author Organization [facility] Address [address] [place] [address] Phone Care Team Providers Care Emt I/85 Name Role Phone Ja Gomes Primary Care Provider [phone] Encounter Details Date Type Department Care Team (Late st Contact Info) Description 12/02/2017 Transcribe Orders [address] [address] Sarita Carey MD [address] [place] [address] [place] [address] Temporal lobe epilepsy (Primary Dx) Social History Tobacco Use Types [...] Info) Description 05/17/2025 4:15 PM EDT Appointment [facility] [place], Bone [facility] - [address] [address] Marva Olson PA [address] [place] [address] documented as of this encounter Results * CBC (12/02/2017 4:06 PM EDT) WBC 4.81 3.40 - 11.20 K/uL [facility] RBC 4.11 3.80 - 4.80 M/uL [facility] HGB 13.2 12.0 - 15.0 g/dL [facility] HCT 37.3 36.0 - 46.0 % [facility] PLT 244 130 - 400 K/uL [facility] MCV 90.8 79.0 - 98.0 fL [facility] MCH 32.1 27.0 - 34.8 pg [facility] MCHC 35.4 31.5 - 36.0 g/dL [facility] RDW 11.5 10.8 - 14.6 % [facility] MPV 9.7 9.4 - 12.4 fl [facility] NRBC 0.00 /100 WBCs [facility] ABSOLUTE NRBC 0.00 K/uL [facility] Blood 12/02/2017 4:06 PM EDT 12/02/2017 4:10 PM EDT us Sarita Carey MD LAB BLOOD BKR ORDERABL ES Final Result [address] [address] * (ABNORMAL) CARBAMAZEPINE (TEGRETOL) LEVEL (12/02/2017 4:06 PM EDT) CARBAMAZEPINE 7.2(L) 8.0 - 12.0 ug/mL [facility] Blood 12/02/2017 4:06 PM EDT 12/02/2017 4:10 PM EDT us Sarita Carey MD LAB BLOOD ORDERABLES F inal Result [address] [address] * LFTs (hepatic panel) (12/02/2017 4:06 PM EDT) ALKALINE PHOSPHATASE 60 39 - 117 U/L [facility] TOTAL BILIRUBIN 0.2 0.0 - 1.2 mg/dL [facility] DIRECT BILIRUBIN <0.2 0 - 0.3 mg/dL [facility] Bilirubin (Indirect) NOT CALCULATED 0 - 1.5 mg/dL [facility] AST 21 0 - 37 U/L [facility] ALT 18 0 - 40 U/L [facility] TOTAL PROTEIN 6.6 6.5 - 8.0 g/dL [facility] ALBUMIN 4.5 3.9 - 4.8 g/dL [facility] GLOBULIN 2.1 1 - 4.8 g/dL [facility] A/G Ratio 2.14 1.00 - 4.80 RATIO [facility] Blood 12/02/2017 4:06 PM EDT 12/02/2017 4:10 PM EDT us Sarita Carey MD LAB BLOOD BKR ORDERABL ES Final Result Performing Organization Address City/State/[facility] Co de Phone Number [facility] [address] [place] [address] documented in this encounter Visit Diagnoses Diagnosis Temporal lobe epilepsy- Primary Localization-related (focal) (partial) epilepsy and epileptic syndromes with complex partial seizures, without mention of intractable epilepsy documented in this encounter Additional Health Concerns Infection Onset Date Last Indicated Resolved Time CoV-Risk 04/20/2024 04/20/2024 05/01/2024 1:21 AM EDT documented as of this encounter Care Teams Emt I/85 Relationship Specialty Start Date End Date Ja Gomes DO [address] [place] [address] PCP - General Internal Medicine 12/13/16 documented as of this encounter Additional Source Comments The information contained in this document represents components of the legal health record. It is not the complete legal health record.[facility]
--- OUTSIDE RECORDS SUMMARY | 2025-01-18 14:04 | XMS_ITS | Encounter Summary ---
Author Organization [facility] Address [address] [place] [address] Phone Care Team Providers Care Inside Barrel Lathe Operator Name Role Phone Mireya Ja Cinthia GREGORIO Primary Care Provider [phone] Encounter Details Date Type Department Care Team (Late st Contact Info) Description 07/04/2020 Procedure Pass [facility], [address] [address] Social History Tobacco Use Types Packs/Day Years Used Date Smoking Tobacco: Former Smokeless Tobacco: Never Comments:college year s Alcohol Use Standard Drinks/Week Comments Yes 0 (1 standard drink = 0.6 oz pur e alcohol) Comments No Sex and Gender Information Value Date Recorded Sex Assigned at Not on file Legal Sex Female 7:40 PM EST Gender Identity Not on file Sexual Orientation Not on file 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 Not on file documented as of this encounter Plan of Treatment Upcoming Encounters Date Type Department Care Team (Late st Contact Info) Description 05/17/2025 4:15 PM EDT Appointment [address] [address] Marva Olson PA [address] [place] [address] documented as of this encounter Visit Diagnoses Not on filedocumented in this encounter Additional Health Concerns Infection Onset Date Last Indicated Resolved Time CoV-Risk 04/20/2024 04/20/2024 05/01/2024 1:21 AM EDT documented as of this encounter Care Teams Inside Barrel Lathe Operator Relationship Specialty Start Date End Date Ja Gomes DO [address] [place] [address] PCP - General Internal Medicine 12/13/16 documented as of this encounter Additional Source Comments The information contained in this document represents components of the legal health record. It is not the complete legal health record.[facility]
--- OUTSIDE RECORDS SUMMARY | 2025-01-18 14:04 | XMS_ITS | Encounter Summary ---
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 documented as of this encounter Plan of Treatment Upcoming Encounters Date Type Department Care Team (Late st Contact Info) Description 05/17/2025 4:15 PM EDT Appointment [facility], Bone D[facility] - [facility] [address] [place] [address] Marva Olson PA [address] [place] [address] documented as of this encounter Visit Diagnoses Not on filedocumented in this encounter Additional Health Concerns Infection Onset Date Last Indicated Resolved Time CoV-Risk 04/20/2024 04/20/2024 05/01/2024 1:21 AM EDT documented as of this encounter Care Teams Senior Controls Engineer Relationship Specialty Start Date End Date Ja Gomes DO [address] [place] [address] PCP - General Internal Medicine 12/13/16 documented as of this encounter Additional Source Comments The information contained in this document represents components of the legal health record. It is not the complete legal health record.[facility]
--- OUTSIDE RECORDS SUMMARY | 2025-01-18 14:04 | XMS_ITS | Encounter Summary ---
Author Organization [facility] Address [address] [place] [address] [address] [place] [address] Phone Care Team Providers Care Respiratory Manager Name Role Phone Mireya Ja Cinthia GREGORIO Primary Care Provider + [phone] Encounter Details Date Type Department Care Team (Latest Contact Info) Description 09/06/2021 Transcribe Orders Virtual Department [address] [place] [address] Shalonda Cordoba MD [address] [facility], [address] [place] [address] [email or web address] Encounter for screening mammogram for malignant neoplasm of breast (Primary Dx) Social History Tobacco Use Types [...] 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 Wish to be (Past 1 Month) No 022 1:15 PM EDT Ackerman, Charles W, RN 2. Non-Specific Active Suici cheikh Thoughts (Past 1 Month) No 09/09/2021 1:15 PM EDT Shahbaz Ackerman RN 6. Suicidal Behavior (Lifetime) No 1:15 PM EDT Charles Ackerman RN documented as of this encounter Plan of Treatment Upcoming Encounters Date Type Department Care Team (Late st Contact Info) Description 05/17/2025 4:15 PM EDT Appointment [facility], [facility] [address] [place] [address] Marva Olson, CHERYL [address] [place] [address] documented as of this encounter Results * BI MAMMOGRAM SCREENING WITH TOMOSYNTHESIS WITH CAD (BILATERAL) (01/07/2022 4:07 PM EST) Anatomical Region Laterality Modality Breast Left, Breast Right, Breast Bilateral Bila teral Mammography 01/08/2022 4:36 PM EST Impressions 01/08/2022 4:40 PM EST BILATERAL BREASTS: Negative, no specific mammographic evidence of malignancy. Normal interval follow-up is recommended in 12 months. BI-RADS: BI-RADS CATEGORY: 1 - Negative. DENSITY: The breast tissue is extremely dense, which lowers the sensitivity of mammography. Narrative 01/08/2022 4:40 PM EST STUDY: BI MAMMOGRAM SCREENING WITH TOMOSYNTHESIS WITH CAD (BILATERAL) TECHNIQUE: Bilateral full-field digital screening mammography is obtained and read in conjunction with computer-aided detection. Tomosynthesis as well as 2-D C view imaging were obtained. COMPARISON: Comparison made to multiple prior, most recent December 04, 2020, and most remote July 28, 2015. BREAST COMPOSITION: The breast tissue is extremely dense, which lowers the sensitivity of mammography. BILATERAL BREASTS: No significant masses, suspicious calcifications or other abnormalities are seen in either breast. Procedure Note Oleg Reinoso MD - 01/08/2022 STUDY: BI MAMMOGRAM SCREENING WITH TOMOSYNTHESIS WITH CAD (BILATERAL) TECHNIQUE: Bilateral full-field digital screening mammography is obtainedand read in conjunction with computer-aided detection. Tomosynthesis aswell as 2-D C view imaging were obtained. COMPARISON: Comparison made to multiple prior, most recent November, and most remote July 28, 2015. BREAST COMPOSITION: The breast tissue is extremely dense, which lowers thesensitivity of mammography. BILATERAL BREASTS: No significant masses, suspicious calcifications orother abnormalities are seen in either breast. IMPRESSION: BILATERAL BREASTS: Negative, no specific mammographic evidence ofmalignancy. Normal interval follow-up is recommended in 12 months. BI-RADS: BI-RADS CATEGORY: 1 - Negative. DENSITY: The breast tissue is extremely dense, which lowers thesensitivity of mammography. Shalonda Cordoba MD IMG MG EXAMS Final Result documented in this encounter Visit Diagnoses Diagnosis Encounter for screening mammogram for malignant neoplasm of breast- Primary Encounter for screening mammogram for malignant neoplasm of breast documented in this encounter Additional Health Concerns Infection Onset Date Last Indicated Resolved Time CoV-Risk 04/20/2024 04/20/2024 05/01/2024 1:21 AM EDT documented as of this encounter Care Teams Respiratory Manager Relationship Specialty Start Date End Date Ja Gomes DO [address] [place] [address] PCP - General Internal Medicine 12/13/16 documented as of this encounter Additional Source Comments The information contained in this document represents components of the legal health record. It is not the complete legal health record.[facility]
== END ==
LOC: HO.HSM 11:53
PROVIDERS: PCP Internal Medicine; Visit Provider Psychiatry & Neurology Neurology
DX: G40.109 Localization-related (focal) (partial) symptomatic epilepsy and epileptic syndromes with simple partial seizures, not intractable, without status epilepticus (principal); G25.81 Restless legs syndrome; G43.009 Migraine without aura, not intractable, without status migrainosus
CPT/HCPCS: 99214

== ENCOUNTER 2025-01-26 15:03 | Outpatient (AMB) | payer BC, SELFPAY ==
--- NOTE | 2025-01-26 15:31 | MHC.OFFVIS ---
Intake Visit Reasons: Seizures Accompanied by: Spouse Allergies No Known Allergies (No Known Allergies*) Allergy (Verified 01/26/25 15:51) Medication List - Last Reconciled 01/26/25 by Chelsea Newton CNP cholecalciferol (vitamin D3) 125 mcg PO DAILY escitalopram oxalate 20 mg PO DAILY gabapentin (Neurontin) 100 mg PO BEDTIME oxcarbazepine 300 mg PO BID sumatriptan succinate 50 mg orally one a day as needed PRN; do not exceed 4 doses per 24 hrs topiramate 25 mg PO BEDTIME 30 days HPI Comments Details: 54 y/o woman with temporal lobe epilepsy (periods of blacking out and one grand mal seizure in her 20s), RLS treated with gabapentin as needed, and anxiety type mood disorder. Her father suffered from bipolar disorder. She was seen on 01/18/2025 for frontal headaches and associated eye tic that started in 12/2024 following an episode of severe altitude sickness while traveling in [place], [place]. Headaches were happening almost daily or every other day, and OTC analgesics such as Tylenol and Advil did not help. The patient maintains an active lifestyle, including fast walking on a treadmill, using free weights, and hiking. The patient does not report any recent illness, stress, or dietary changes. She was here today with her for new concern. She had an episode this morning while on the computer at work, reading an email, when she suddenly became out of it. She was unsure if she blacked out, but she suddenly felt very confused and was confused about what she was doing. She had trouble understanding what she was reading. It lasted few seconds and she felt fine afterwards. No dizziness. She did not have headache at the time, but was starting to get headache now. No missed doses of oxcarbazepine. She says she has not had any seizure-like episodes in many years. Headaches were still happening almost every day to every other day, but eye tic was less. Sumatriptan as needed helped some of the time. She had headache yesterday that was relieved with sumatriptan. Sleep was okay. [facility] Medical History (Updated 01/18/25 @ 12:42 by Sarita Carey MD) Preventative health care Colonic polyp Diverticulosis Annual physical exam ADHD (attention deficit hyperactivity disorder) Arthritis Neutropenia Temporal lobe epilepsy Vitamin D deficiency Hyponatremia High serum vitamin B12 Fatigue Elevated parathyroid hormone Lightheadedness History of mammogram (~11/06/18) Constipation Seizure disorder Anxiety disorder Weakness COVID-19 vaccine series completed Restless leg syndrome Seizures Anxiety and depression Surgical History History of colonoscopy (~01/08/21) History of esophagogastroduodenoscopy (EGD) History of total left knee replacement (TKR) History of fasciotomy Family History Father Parkinson disease Amyloidosis Mother Breast cancer Heart attack Brother No problems noted. Brother No problems noted. Social History Housing: House Are you a primary medical care evaluation specialist to a significant other at home: No Do you presently have visiting nurse or other home services: No Patient Tobacco Use Status: Former Tobacco user Tobacco use type: Cigarette Advance Directives Date on File: 01/08/21 service: No Current occupational status: employed Cognitive needs: No Hearing needs: No Vision needs: No Review of Systems Narrative - Neurological: Headaches - Reports an involuntary eye tic. - Reports restless legs occurring 2-3 nights per week. - Denies history of head trauma. - Constitutional: Denies cold or flu-like symptoms. - Reports normal sleep. - Endocrine: Reports history of early menopause at age 41. - Denies menopausal symptoms such as sweating. Physical Exam Neuro Other: Mental Status: Alert and oriented to person, place, and time. Normal attention. Normal spontaneous speech, fluency, and comprehension. Cranial Nerves: CN II: Visual fournier full to confrontation, visual acuity intact. CN III, IV, : Pupils equal, round, reactive to light and accommodation. Extraocular movements are normal. CN V: Facial sensation is normal. CN VII: Facial movements symmetrical. CN VIII: Hearing intact to bedside conversation is normal. CN IX, X: Palate elevates symmetrically. CN XI: Shoulder shrug and head turn symmetrical. CN XII: Tongue midline without atrophy or fasciculations. Extrapyramidal: Full facial expressions and blinking. No rigidity. Movements are appropriate with no tremor or abnormality. Speech: Normal; no dysarthria or tremor. Results Reviewed Results Reviewed: MRI brain WWO at [facility] in Jan 2017: WNL EEG by Dr. Brian in 2004: b/l spikes and slow waves discharges EEG at [facility] in Dec 2016: mild scattered background slowing. Assessment & Plan Assessment & Plan (1) Temporal lobe epilepsy: Comment: MRI brain WWO at [facility] in Jan 2017: WNL EEG by Dr. Brian in 2004: b/l spikes and slow waves discharges EEG at [facility] in Dec 2016: mild scattered background slowing. Code(s): G40.109 - Localization-related (focal) (partial) symptomatic epilepsy and epileptic syndromes with simple partial seizures, not intractable, without status epilepticus Category: Medical Plan: Continue oxcarbazepine 300mg 1 tablet twice a day. EEG and labs ordered. Follow up after testing or sooner as needed. (2) RLS (restless legs syndrome): Code(s): G25.81 - Restless legs syndrome Category: Medical Plan: Continue Gabapentin 100 mg 1 capsule at night as needed for restless legs syndrome (3) Migraine without aura: Code(s): G43.009 - Migraine without aura, not intractable, without status migrainosus Category: Medical Qualifiers: Status migrainosus presence: without status migrainosus Intractability: not intractable Qualified Code(s): G43.009 - Migraine without aura, not intractable, without status migrainosus Plan: Start topiramate 25mg 1 tablet at bedtime, use/side effects reviewed. Continue sumatriptan 50mg 1 tablet as needed for migraine. Orders: Orders Complete Blood Count Auto Diff Today G40.109 - Localization-related (focal) (partial) symptomatic epilepsy and epileptic syndromes with simple partial seizures, not intractable, without status epilepticus Comprehensive Met. Panel Today G40.109 - Localization-related (focal) (partial) symptomatic epilepsy and epileptic syndromes with simple partial seizures, not intractable, without status epilepticus C Reactive Protein Today G43.009 - Migraine without aura, not intractable, without status migrainosus EEG Routine Today G40.109 - Localization-related (focal) (partial) symptomatic epilepsy and epileptic syndromes with simple partial seizures, not intractable, without status epilepticus UA ClnCatch+Micro w/rflx Cult Today N39.0 - Urinary tract infection, site not specified Erythrocyte Sedimentation Rate Today G43.009 - Migraine without aura, not intractable, without status migrainosus Medications: New topiramate 25 mg PO BEDTIME 30 tabs 2RF 30 days Coding Level of Care Code Est Pt Level 4 (70811) Diagnoses Temporal lobe epilepsy G40.109 RLS (restless legs syndrome) G25.81 Migraine without aura and without status migrainosus, not intractable G43.009 Status migrainosus presence: without status migrainosus Intractability: not intractable
--- OUTSIDE RECORDS SUMMARY | 2025-01-26 23:38 | XMS_ITS | Encounter Summary ---
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 Not on file Not on file documented as of this encounter Plan of Treatment Upcoming Encounters Date Type Department Care Team (Late st Contact Info) Description 05/17/2025 4:15 PM EDT Appointment [facility], Bone Density - [facility] [address] [place] [address] Marva Olson PA [address] [place] [address] Scheduled Orders Name Type Priority Associated Diagnoses Orde r Schedule DXA Screening Imaging Routine Age-related osteoporosis without current pathological fracture Expected: 01/09/2025, Expires: 12/10/2025 documented as of this encounter Visit Diagnoses Diagnosis Age-related osteoporosis without current pathological fracture- Primary documented in this encounter Care Teams Smoking Pipe Liner Relationship Specialty Start Date End Date Ja Gomes DO [address] [place] [address] PCP - General Internal Medicine 12/13/16 documented as of this encounter Additional Source Comments The information contained in this document represents components of the legal health record. It is not the complete legal health record.[facility]
--- OUTSIDE RECORDS SUMMARY | 2025-01-26 23:38 | XMS_ITS | Clinical Summary ---
Author Organization [facility] Address [address] [place] [address] Phone Care Team Providers Care Drawer In Jacquard Loom Name Role Phone Ja Gomes DO Primary Care Provider [phone] Allergies No known active allergies Medications carBAMazepine [...] Visit [facility] [address] [place] [address] Sam Hernadez MD Encounter for gynecological examination without abnormal finding (Primary Dx); Screening for cervical cancer 12/10/2024 Transcribe Orders Virtual Department [address] [place] [address] Marva Olson PA Age-related osteoporosis without current [...] 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 Not [...] Info) Description 05/17/2025 4:15 PM EDT Appointment [facility], Bone Density [address] [address] Marva Olson PA [address] [place] [address] Health Maintenance Due Date Last Done Comments [...] HPV 16 Negative 01/06/2025 4:18 PM EST [facility] HPV 18 Negative 01/06/2025 4:18 PM EST [facility] HPV 45 Negative 01/06/2025 4:18 PM EST [facility] HPV 31 Negative 01/06/2025 4:18 PM EST [facility] HPV 51 Negative 01/06/2025 4:18 PM EST [facility] HPV 52 Negative 01/06/2025 4:18 PM EST [facility] HPV 33, 58 Negative 01/06/2025 4:18 PM EST [facility] HPV 35, 39, 68 Negative 01/06/2025 4:18 PM EST [facility] HPV 56, 59, 66 Negative 01/06/2025 4:18 PM EST [facility] HPV Disclaimer: Performed by real-time polymerase chain reaction (PCR) at [address] using the FDA-approved [employer] Onclarity HPV Assay with extended genotyping. Uses of the assay in scenarios other than those approved by the FDA should be considered off-label use. The accuracy and precision of this test for all other off-label specimen sources has been verified in the Cytopathology Laboratory of the [facility] and has not been cleared or approved by the U.S. Food and Drug Administration. Clinical correlation is advised. The assay assesses the E6/E7 DNA target and utilizes human beta globin as an internal control. Cytology and HPV testing are screening assays and should not be used as the sole means of detecting cancer. False-positives and false-negatives can occur. 01/06/2025 4:18 PM EST [facility] Pap Collection (Cervix) 12/30/2024 12:32 PM EST 12/31/2024 9:41 AM EST us Sam Hernadez MD LAB GENERAL ORDERABLES Final Res ult [address] [address] * Pap Test (12/30/2024 12:32 PM EST) [...] 59, 66: Negative 01/06/2025 4:18 PM EST [facility] at 1618 EST Reviewed by KATELYNN Hall(ASCP) Pap Methodology This specimen was successfully pre-screened using the [employer] ThinPrep Imaging System. Selected fournier from the senior industrial engineer were reviewed by a Chemical Production Machine Operator. If indicated, this case was reviewed by [...] minimize false negative results. 01/06/2025 4:18 PM [facility] Clinical History ICD-10: Screening for cervical cancer ICD-10: Encounter for gynecological examination without abnormal finding 01/06/2025 4:18 PM [facility] LMP? N/A 01/06/2025 4:18 PM [facility] Gross Description A. PAP TEST: CERVIX: 1 Preservcyt vial received labeled with two patient identifiers. 1 ThinPrep slide prepared. 01/06/2025 4:18 PM EST [facility] A. Adequacy Satisfactory for evaluation, transformation zone indeteriminate due to atrophy 01/06/2025 4:18 PM [facility] A. Interpretation Negative For Intraepithelial Lesion or Malignancy. 01/06/2025 4:18 PM [facility] Pap Collection (Cervix) 12/30/2024 12:32 PM EST 12/30/2024 12:32 PM EST us Sam Hernadez MD LAB CYTOLOGY ORDERABLES Final Re sult [address] [address] * BI MAMMOGRAM SCREENING WITH TOMOSYNTHESIS WITH [...] (09/29/2023 9:13 AM EDT) HDL 113 mg/dL [facility] Comment: Interpretation <40 mg/dL: Low HDL cholesterol (major risk factor for CHD) Greater than or equal to 60 mg/dL: High HDL cholesterol ( negative risk factor for CHD) HDL - cholesterol is affected by a number of factors, e.g. smoking, excerise, hormones, sex and age. CHOLESTEROL 251(H) 0 - 240 mg/dL [facility] TRIGLYCERIDES 43 30 - 160 mg/dL [facility] LDL 129 50 - 129 mg/dL [facility] Comment: LDL levels in terms of risk for coronary heart disease: <100 mg/dL: Optimal 100-129 mg/dL: Near or above optimal 130-159 mg/dL: Borderline high 160-189 mg/dL: High >190 mg/dL: Very High CARDIAC RISK RATIO 2.2(L) 3.3 - 4.4 C [facility] Blood 09/29/2023 9:13 AM EDT 09/29/2023 9:16 AM EDT us Ja Gomes DO LAB BLOOD BKR ORDERABLES Fin al Result Performing Organization Address [facility]/ZIP Co de Phone Number [address] [address] * (ABNORMAL) CARBAMAZEPINE (TEGRETOL) LEVEL (12/02/2017 4:06 PM EDT) CARBAMAZEPINE 7.2(L) 8.0 - 12.0 ug/mL [facility] Blood 12/02/2017 4:06 PM EDT 12/02/2017 4:10 PM EDT Sarita Carey MD LAB BLOOD ORDERABLES F inal Result Performing Organization Address City/[facility]/ZIP Co de Phone Number [address] [address] from Last 3 Months or Most Recently Relevant to Health Maintenance [facility] PPO EPO [facility] PPO EPO [facility] PPO EPO [facility] PPO EPO Care Teams Drawer In Jacquard Loom Relationship Specialty Start Date End Date Ja Gomes DO [address] [place] [id number] PCP - General Internal Medicine 12/13/16 Additional Source Comments The information contained in this document represents components of the legal health record. It is not the complete legal health record.[facility]
--- OUTSIDE RECORDS SUMMARY | 2025-01-26 23:38 | XMS_ITS | Encounter Summary ---
Author Organization [facility] Address [address] [place] [address] Phone Care Team Providers Care Laborer Vineyard Name Role Phone Ja Gomes DO Primary Care Provider + [phone] Reason for Referral * Physical Therapy (Routine) - Closed Specialty Diagnoses / Procedures Referred By Laura t Referred To Contact Physical Therapy Diagnoses Encounter for rehabilitation Aarti Nair PA Phone: tel: fax: [address] [address] Phone: tel: Referral ID Status Reason Start Date Expiration Date Visits Re quested Visits Authorized [id number] Closed 07/28/2018 07/28/2019 28 28 Encounter Details Date Type Department Care Team (Latest Contact Info) Description 06/30/2018 Transcribe Orders [facility] [address] [place] [address] Unknown, Unknown, Encounter for rehabilitation (Primary Dx) [...] 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 Not on file documented as of this encounter Plan of Treatment Upcoming Encounters Date Type Department Care Team (Late st Contact Info) Description 05/17/2025 4:15 PM EDT Appointment [facility], Bone Density - [facility] [address] [place] [address] Marva Olson PA [address] [place] [address] Scheduled Referrals Name Type Priority Associated Diagnoses Orde r Schedule Ambulatory referral to [facility] Physical Therapy Outpatient Referral Routine Encounter for rehabilitation Ordered: 06/30/2018 documented as of this encounter Visit Diagnoses Diagnosis Encounter for rehabilitation- Primary documented in this encounter Additional Health Concerns Infection Onset Date Last Indicated Resolved Time CoV-Risk 04/20/2024 04/20/2024 05/01/2024 1:21 AM EDT documented as of this encounter Care Teams Laborer Vineyard Relationship Specialty Start Date End Date Ja Gomes DO [address] [place] [address] PCP - General Internal Medicine 12/13/16 documented as of this encounter Additional Source Comments The information contained in this document represents components of the legal health record. It is not the complete legal health record.[facility]
--- OUTSIDE RECORDS SUMMARY | 2025-01-26 23:38 | XMS_ITS | Encounter Summary ---
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 Not on file documented as of this encounter Plan of Treatment Upcoming Encounters Date Type Department Care Team (Late st Contact Info) Description 05/17/2025 4:15 PM EDT Appointment [facility], Bone Density - [facility] [place] [address] [place] [address] Marva Olson PA [address] [place] [address] documented as of this encounter Visit Diagnoses Not on filedocumented in this encounter Additional Health Concerns Infection Onset Date Last Indicated Resolved Time CoV-Risk 04/20/2024 04/20/2024 05/01/2024 1:21 AM EDT documented as of this encounter Care Teams Top Carrier Relationship Specialty Start Date End Date Ja Gomes DO [address] [place] [address] PCP - General Internal Medicine 12/13/16 documented as of this encounter Additional Source Comments The information contained in this document represents components of the legal health record. It is not the complete legal health record.[facility]
--- OUTSIDE RECORDS SUMMARY | 2025-01-26 23:38 | XMS_ITS | Encounter Summary ---
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 Not on file documented as of this encounter Plan of Treatment Upcoming Encounters Date Type Department Care Team (Late st Contact Info) Description 05/17/2025 4:15 PM EDT Appointment [facility], Bone Density - [facility] [address] [place] [address] Marva Olson PA [address] [place] [address] documented as of this encounter Results * [...] documented as of this encounter Care Teams Strategic Marketing Specialist Relationship Specialty Start Date End Date Ja Gomes DO [address] [place] [address] PCP - General Internal Medicine 12/13/16 documented as of this encounter Additional Source Comments The information contained in this document represents components of the legal health record. It is not the complete legal health record.[facility]
--- OUTSIDE RECORDS SUMMARY | 2025-01-26 23:38 | XMS_ITS | Encounter Summary ---
Author Organization [facility] Address [address] [place] [address] Phone Care Team Providers Care Coal Tram Driver Name Role Phone Ja Gomes Primary Care Provider [phone] Encounter Details Date Type Department Care Team (Late st Contact Info) Description 12/02/2017 Transcribe Orders [address] [address] Sarita Carey MD [address] [place] [address] [place] [address] Temporal lobe epilepsy (Primary Dx) Social History [...] Info) Description 05/17/2025 4:15 PM EDT Appointment [facility], Bone [facility] - [address] [address] Marva Olson PA [address] [place] [address] documented as of this encounter Results * CBC (12/02/2017 4:06 PM EDT) WBC 4.81 3.40 - 11.20 K/uL [facility] RBC 4.11 3.80 - 4.80 M/uL [facility] HGB 13.2 12.0 - 15.0 g/dL [facility] HCT 37.3 36.0 - 46.0 % [facility] PLT 244 130 - 400 K/uL [facility] MCV 90.8 79.0 - 98.0 fL [facility] MCH 32.1 27.0 - 34.8 pg [facility] MCHC 35.4 31.5 - 36.0 g/dL [facility] RDW 11.5 10.8 - 14.6 % [facility] MPV 9.7 9.4 - 12.4 fl [facility] NRBC 0.00 /100 WBCs [facility] ABSOLUTE NRBC 0.00 K/uL [facility] Blood 12/02/2017 4:06 PM EDT 12/02/2017 4:10 PM EDT us Sarita Carey MD LAB BLOOD BKR ORDERABL ES Final Result [address] [address] * (ABNORMAL) CARBAMAZEPINE (TEGRETOL) LEVEL (12/02/2017 4:06 PM EDT) CARBAMAZEPINE 7.2(L) 8.0 - 12.0 ug/mL [facility] Blood 12/02/2017 4:06 PM EDT 12/02/2017 4:10 PM EDT us Sarita Carey MD LAB BLOOD ORDERABLES F inal Result [address] [address] * LFTs (hepatic panel) (12/02/2017 4:06 PM EDT) ALKALINE PHOSPHATASE 60 39 - 117 U/L [facility] TOTAL BILIRUBIN 0.2 0.0 - 1.2 mg/dL [facility] DIRECT BILIRUBIN <0.2 0 - 0.3 mg/dL [facility] Bilirubin (Indirect) NOT CALCULATED 0 - 1.5 mg/dL [facility] AST 21 0 - 37 U/L [facility] ALT 18 0 - 40 U/L [facility] TOTAL PROTEIN 6.6 6.5 - 8.0 g/dL [facility] ALBUMIN 4.5 3.9 - 4.8 g/dL [facility] GLOBULIN 2.1 1 - 4.8 g/dL [facility] A/G Ratio 2.14 1.00 - 4.80 RATIO [facility] Blood 12/02/2017 4:06 PM EDT 12/02/2017 4:10 PM EDT us Sarita Carey MD LAB BLOOD BKR ORDERABL ES Final Result Performing Organization Address City/State/[facility] Co de Phone Number [facility] [address] [place] [address] documented in this encounter Visit Diagnoses Diagnosis Temporal lobe epilepsy- Primary Localization-related (focal) (partial) epilepsy and epileptic syndromes with complex partial seizures, without mention of intractable epilepsy documented in this encounter Additional Health Concerns Infection Onset Date Last Indicated Resolved Time CoV-Risk 04/20/2024 04/20/2024 05/01/2024 1:21 AM EDT documented as of this encounter Care Teams Coal Tram Driver Relationship Specialty Start Date End Date Ja Gomes DO [address] [place] [address] PCP - General Internal Medicine 12/13/16 documented as of this encounter Additional Source Comments The information contained in this document represents components of the legal health record. It is not the complete legal health record.[facility]
--- OUTSIDE RECORDS SUMMARY | 2025-01-26 23:38 | XMS_ITS | Clinical Summary ---
Author Organization [facility] Address [address] [place] [address] Phone Care Team Providers Care Detail Maker And Fitter Name Role Phone Ja Gomes DO Primary Care Provider [phone] Allergies No known active allergies Medications carBAMazepine [...] mg/gram) vaginal cream Insert into the vagina. 09/04/20 24 Active fluorometholone (FML) 0.1 % ophthalmic suspension SHAKE LIQUID AND INSTILL 1 DROP IN BOTH EYES THREE TIMES DAILY 11/28/19 Active gabapentin (NEURONTIN) 100 mg capsule TAKE 1 CAPSULE BY MOUTH EVERY DAY NEEDED FOR 90 DAYS 06/02/19 Active lidocaine HCL 3 % cream Apply topically 3 times daily. 11/22/19 Active nystatin-triamcino lone (MYCOLOG II) ointment Apply thin film to affected areas twice weekly. 02/07/20 Active ondansetron ODT (ZOFRAN-ODT) 4 mg disintegrating tablet Take 1 tablet (4 mg total) by mouth every 8 (eight) hours if needed. for nausea and vomiting 08/28/19 Active OXcarbazepine (TRILEPTAL) 300 mg tablet Take 1 tablet (300 mg total) by mouth 2 (two) times a day. 12/24/19 Active triamcinolone (KENALOG) 0.1 % ointment Apply thin film topically twice a day to affected area as needed. 11/11/19 Active Active Problems Problem Noted Date Diagnosed Date Lichen sclerosus et atrophicus of the vulva 05/2023 Overview (01/08/2024): Presumptive diagnosis. No biopsy. Pale vulvar skin, joslyn-clitoral irritation, mild loss/agglutination of right labia minora. Good response to clobetasol. Diverticulosis of colon 09/10/2023 Seizure disorder 09/10/2023 Genital pruritus 02/06/2022 Constipation 03/17/2018 Vaginitis and vulvovaginitis 03/13/2018 Syncope and collapse 02/04/2017 Immunizations Immunization Administration Dates Next Due Influenza Quadravalent, MDCK [...] Date Comments Anxiety state DX:Anxiety state Seizure ([facility]/HCC V24, [facility] V28) DX:Seizure ([facility]); COMMENT: had grand mal age 21 Family [...] on file Sexual Orientation Not on file Last Filed Vital Signs [...] Health Maintenance Due Date Last Done Comments Colorectal Cancer Screening: Colonoscopy 1971 Hepatitis B Vaccines (1 of 3 - 19+ 3-dose series) 1990 Cervical Cancer Screening: Pap Smear 02/02/1992 Pneumococcal Vaccine: 50+ Years (1 of 1 - PCV) 2021 HIV Screening 09/12/2023 Hepatitis C Screening 09/12/2023 Social Influencers of Health Screening 09/12/2023 Depression Screening 02/18/2024 COVID-19 Vaccine (2024- season) 2024 01/07/2024, 02/18/2023, 11/19/2021, Additional history exists Influenza Vaccine (#1) 2024 , 12/05/2022, 11/19/2021, Additional history exists Breast Cancer Screening 01/24/2025 01/24/2023 Cholesterol Screening (Lipid Panel) 09/28/2028 09/29/2023 DTaP,Tdap,and Td Vaccines (2 - Td or Tdap) 09/11/2031 09/10/2021 RSV Immunization Adult Patients (1 - 1-dose 75+ series) 2046 Zoster Vaccines Completed 03/08/2024, 10/22/2023 HIB Vaccines [...] patient's age to complete this topic Insurance [facility] Care Teams Detail Maker And Fitter Relationship Specialty Start Date End Date Ja Gomes DO [address] [place] [phone] PCP - General 07/16/23
--- OUTSIDE RECORDS SUMMARY | 2025-01-26 23:38 | XMS_ITS | Encounter Summary ---
Author Organization [facility] Address [address] [place] [address] Phone Care Team Providers Care Tobacco Stripper Hand Name Role Phone Mireya Ja Vicente Primary Care Provider [phone] Encounter Details Date Type Department Care Team (Late st Contact Info) Description 08/07/2017 Ancillary Orders Virtual Department [address] [place] [address] Taya Stiles MD Breast screening Social History [...] Info) Description 05/17/2025 4:15 PM EDT Appointment [facility], Bone Density - [facility] [address] [place] [address] Marva Olson PA [address] [place] [address] documented as of this encounter Results * [...] documented as of this encounter Care Teams Tobacco Stripper Hand Relationship Specialty Start Date End Date Ja Gomes DO [address] [place] [phone] PCP - General Internal Medicine 12/13/16 documented as of this encounter Additional Source Comments The information contained in this document represents components of the legal health record. It is not the complete legal health record.[facility]
--- OUTSIDE RECORDS SUMMARY | 2025-01-26 23:38 | XMS_ITS | Encounter Summary ---
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 [address] [place] [address] Marva Olson, CHERYL [address] [place] [address] documented as of this encounter Results * [...] documented as of this encounter Care Teams Soaker Meat Relationship Specialty Start Date End Date Ja Gomes DO [address] [place] [address] PCP - General Internal Medicine 12/13/16 documented as of this encounter Additional Source Comments The information contained in this document represents components of the legal health record. It is not the complete legal health record.[facility]
--- OUTSIDE RECORDS SUMMARY | 2025-01-26 23:38 | XMS_ITS | Encounter Summary ---
Author Organization [facility] Address [address] [place] [address] Phone Care Team Providers Care Bowling Ball Engraver Name Role Phone Ja Gomes DO Primary Care Provider + [phone] Encounter Details Date Type Department Care Team (Latest Contact Info) Description 12/16/2016 Transcribe Orders [facility] Phlebotomy [address] [place] [address] Ja Gomes DO [address] [place] [address] Nausea (Primary Dx) Social History Tobacco Use [...] PM EDT Appointment [facility], Bone D[facility] - [facility] [address] [place] [address] Marva Olson PA [address] [place] [address] documented as of this encounter Results * (ABNORMAL) Urinalysis with sediment (12/16/2016 5:05 PM EDT) WBC 0-4(A) NONE SEEN /hpf [facility] RBC NONE SEEN NONE SEEN /hpf [facility] URINE EPITHELIAL 11-20(A) NONE SEEN [facility] MUCUS Trace(A) NONE SEEN /hpf [facility] BACTERIA Trace(A) NONE SEEN [facility] COLOR STRAW(A) Yellow [facility] CLARITY Clear [facility] GLUCOSE Negative Negative [facility] BILI Negative Negative [facility] KETONES Negative Negative [facility] SPECIFIC GRAVITY <1.005 1.005 - 1.030 [facility] BLOOD Negative Negative [facility] PH 5.5 5.0 - 8.0 [facility] Protein-UA Negative Negative [facility] NITRITE Negative Negative [facility] Leukocyte esterase, ur Negative Negative [facility] Urine (Urine) 12/16/2016 5:0 5 PM EDT 12/16/2016 7:31 PM EDT us Ja Gomes DO LAB URINE ORDERABLES Final R esult Performing Organization Address [facility]/ZIP Co de Phone Number [address] [address] * Sedimentation rate (ESR) (12/16/2016 5:05 PM EDT) Pathologist [facility] ESR 1 0 - 20 mm/h [facility] Blood 12/16/2016 5:05 PM EDT 12/16/2016 5:09 PM EDT Ja Gomes DO LAB BLOOD BKR ORDERABLES Fin al Result Performing Organization Address [facility] Co de Phone Number [address] [address] * (ABNORMAL) LFTs (hepatic panel) (12/16/2016 5:05 PM EDT) ALKALINE PHOSPHATASE 49 39 - 117 U/L [facility] TOTAL BILIRUBIN <0.2 0 - 1.2 mg/dL [facility] DIRECT BILIRUBIN <0.2 0 - 0.3 mg/dL [facility] Bilirubin (Indirect) NOT CALCULATED 0 - 1.5 mg/dL [facility] AST 17 0 - 37 U/L [facility] ALT 11 0 - 40 U/L [facility] TOTAL PROTEIN 5.9(L) 6.5 - 8.0 g/dL [facility] ALBUMIN 4.0 3.9 - 4.8 g/dL [facility] GLOBULIN 1.9 1 - 4.8 g/dL [facility] A/G Ratio 2.11 1.00 - 4.80 RATIO [facility] Blood 12/16/2016 5:05 PM EDT 12/16/2016 5:09 PM EDT Ja Gomes LAB BLOOD BKR ORDERABLES Mohsen serena Result - Final Performing Organization Address [facility] Co de Phone Number [address] [address] * Lipase (12/16/2016 5:05 PM EDT) LIPASE 36 16 - 63 U/L [facility] Blood 12/16/2016 5:05 PM EDT 12/16/2016 5:09 PM EDT Ja Gomes LAB BLOOD BKR ORDERABLES Fin al Result Performing Organization Address [facility] Co de Phone Number [address] [address] * (ABNORMAL) C-Reactive Protein (12/16/2016 5:05 PM EDT) C REACTIVE PROTEIN <0.0(L) 0 - 0.5 mg/L [facility] Blood 12/16/2016 5:05 PM EDT 12/16/2016 5:09 PM EDT Ja Gomes LAB BLOOD BKR ORDERABLES Fin al Result Performing Organization Address [facility] Co de Phone Number [address] [address] * (ABNORMAL) CBC and differential (12/16/2016 5:05 PM EDT) WBC 4.31 3.40 - 11.20 K/uL [facility] RBC 3.91 3.80 - 4.80 M/uL [facility] HGB 12.7 12.0 - 15.0 g/dL [facility] HCT 34.2(L) 36.0 - 46.0 % [facility] PLT 209 130 - 400 K/uL [facility] MCV 87.5 79.0 - 98.0 fL [facility] MCH 32.5 27.0 - 34.8 pg [facility] MCHC 37.1(H) 31.5 - 36.0 g/dL [facility] RDW 11.4 10.8 - 14.6 % [facility] MPV 10.0 9.4 - 12.4 fl [facility] NRBC 0.00 /100 WBCs [facility] ABSOLUTE NRBC 0.00 K/uL [facility] DIFF METHOD Auto [facility] NEUTS 47.4 45.30 - 77.70 % [facility] LYMPHS 35.0 12.30 - 39.70 % [facility] MONOS 8.8 4.10 - 12.80 % [facility] EOS 7.4(H) 0 - 7.2 % [facility] BASOS 1.2 0 - 2.80 % [facility] Granulocytes, immature (%) 0.2 0.0 - 0.9 % [facility] ABSOLUTE NEUTS 2.04 1.40 - 7.70 K/uL [facility] ABSOLUTE LYMPHS 1.51 0.60 - 3.20 K/uL [facility] ABSOLUTE MONOS 0.38 0.11 - 0.59 K/uL [facility] ABSOLUTE EOS 0.32 0.01 - 0.50 K/uL [facility] ABSOLUTE BASOS 0.05 0.00 - 0.08 K/uL [facility] Granulocytes, immature 0.01 0.00 - 0.05 K/uL [facility] Blood 12/16/2016 5:05 PM EDT 12/16/2016 5:09 PM EDT us Ja Gomes DO LAB BLOOD BKR ORDERABLES Fin al Result Performing Organization Address City/[facility]/ZIP Co de Phone Number [address] [address] * (ABNORMAL) Basic metabolic panel (12/16/2016 5:05 PM EDT) SODIUM 142 133 - 146 mmol/L [facility] CHLORIDE 103 96 - 108 mmol/L [facility] POTASSIUM 3.9 3.3 - 5.1 mmol/L [facility] CO2 30 21 - 35 mmol/L [facility] BUN 5(L) 6 - 19 mg/dL [facility] CREATININE 0.60 0.5 - 1.5 mg/dL [facility] GLUCOSE 91 70 - 99 mg/dL [facility] CALCIUM 8.8 8.4 - 10.3 mg/dL [facility] EGFR >60 >60 mL/min/1.7 3m2 [facility] Comment:Abnormal if <60. If patient is -Albanian, multiply the result by 1.21. ANION GAP 13 10 - 20 mmol/L [facility] Blood 12/16/2016 5:05 PM EDT 12/16/2016 5:09 PM EDT Ja Gomes LAB BLOOD BKR ORDERABLES Fin al Result Performing Organization Address [facility] Co de Phone Number [address] [address] * TSH (12/16/2016 5:05 PM EDT) TSH 1.88 0.27 - 4.20 uIU/mL [facility] Blood 12/16/2016 5:05 PM EDT 12/16/2016 5:09 PM EDT Ja Sternman LAB BLOOD BKR ORDERABLES Fin al Result Performing Organization Address City/[facility]/ZIP Co de Phone Number [address] [address] documented in this encounter Visit Diagnoses Diagnosis Nausea- Primary Nausea alone documented in this encounter Additional Health Concerns Infection Onset Date Last Indicated Resolved Time CoV-Risk 04/20/2024 04/20/2024 05/01/2024 1:21 AM EDT documented as of this encounter Care Teams Bowling Ball Engraver Relationship Specialty Start Date End Date Ja Gomes DO [address] [place] [address] PCP - General Internal Medicine 12/13/16 documented as of this encounter Additional Source Comments The information contained in this document represents components of the legal health record. It is not the complete legal health record.[facility]
--- OUTSIDE RECORDS SUMMARY | 2025-01-26 23:38 | XMS_ITS | Encounter Summary ---
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 documented as of this encounter Plan of Treatment Upcoming Encounters Date Type Department Care Team (Late st Contact Info) Description 05/17/2025 4:15 PM EDT Appointment [facility], Bone Density - [facility] [address] [place] [address] Marva Olson PA [address] [place] [address] documented as of this encounter Visit Diagnoses Not on filedocumented in this encounter Additional Health Concerns Infection Onset Date Last Indicated Resolved Time CoV-Risk 04/20/2024 04/20/2024 05/01/2024 1:21 AM EDT documented as of this encounter Care Teams Communication Spec Relationship Specialty Start Date End Date Ja Gomes DO [address] [place] [address] PCP - General Internal Medicine 12/13/16 documented as of this encounter Additional Source Comments The information contained in this document represents components of the legal health record. It is not the complete legal health record.[facility]
--- OUTSIDE RECORDS SUMMARY | 2025-01-26 23:38 | XMS_ITS | Encounter Summary ---
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 POS - [id number] Narrative 11/06/2018 5:33 PM EDT Bilateral mammography [...] couldobscure a lesion on mammography. POS - [id number] Ja Gomes DO IMG MG EXAMS Final Result documented in this encounter Visit Diagnoses Diagnosis Breast screening Breast screening, unspecified Breast screening Breast screening, unspecified documented in this encounter Additional Health Concerns Infection Onset Date Last Indicated Resolved Time CoV-Risk 04/20/2024 04/20/2024 05/01/2024 1:21 AM EDT documented as of this encounter Care Teams Pinking Machine Operator Relationship Specialty Start Date End Date Ja Gomes DO [address] [place] [address] PCP - General Internal Medicine 12/13/16 documented as of this encounter Additional Source Comments The information contained in this document represents components of the legal health record. It is not the complete legal health record.[facility]
--- OUTSIDE RECORDS SUMMARY | 2025-01-26 23:38 | XMS_ITS | Encounter Summary ---
Author Organization [facility] Address [address] [place] [address] Phone Care Team Providers Care Photography Coordinator Name Role Phone Ja Gomes DO Primary Care Provider [phone] Encounter Details Date Type Department Care Team (Latest Contact Info) Description 12/24/2016 Transcribe Orders [address] [address] Ja Gomes DO [address] [place] [address] Irritable bowel syndrome with constipation (Primary Dx) [...] Info) Description 05/17/2025 4:15 PM EDT Appointment [facility], Bone [facility] [address] [place] [address] Marva Olson PA [address] [place] [address] documented as of this encounter Procedures Procedure Name Priority Date/Time Associated Diagnosis Comments LYME SCREEN WITH REFLEX TO WESTERN BLOT, BLOOD Routine 12/24/2016 5:14 PM EST Irritable bowel syndrome with constipation documented in this encounter Results * Lyme screen with reflex to Western blot, blood (12/24/2016 5:14 PM EST) Lyme AB IgG Negative Negative [facility] Lyme AB IgM Negative Negative [facility] Blood 12/24/2016 5:14 PM EST 12/24/2016 5:16 PM EST us Ja Gomes DO LAB BLOOD BKR ORDERABLES Mohsen serena Result - Final [facility] [address] [place] [address] documented in this encounter Visit Diagnoses Diagnosis Irritable bowel syndrome with constipation- Primary Irritable bowel syndrome documented in this encounter Additional Health Concerns Infection Onset Date Last Indicated Resolved Time CoV-Risk 04/20/2024 04/20/2024 05/01/2024 1:21 AM EDT documented as of this encounter Care Teams Photography Coordinator Relationship Specialty Start Date End Date Ja Gomes, [address] [place] [address] PCP - General Internal Medicine 12/13/16 documented as of this encounter Additional Source Comments The information contained in this document represents components of the legal health record. It is not the complete legal health record.[facility]
--- OUTSIDE RECORDS SUMMARY | 2025-01-26 23:38 | XMS_ITS | Encounter Summary ---
Author Organization [facility] Address [address] [place] [address] Phone Care Team Providers Care Pmo Consultant Name Role Phone Mireya Ja Cinthia GREGORIO Primary Care Provider [phone] Encounter Details Date Type Department Care Team (Late st Contact Info) Description 09/11/2017 Ancillary Orders Virtual Department [address] [place] [address] Taya Stiles MD Abnormal mammogram Social History [...] Info) Description 05/17/2025 4:15 PM EDT Appointment [facility], Bone Density [facility] [address] [place] [address] Marva Olson PA [address] [place] [address] documented as of this encounter Results * [...] S/S: Follow-up asymmetric density left breast POS [id number] Narrative 09/16/2017 3:40 PM EDT Full field [...] S/S: Follow-up asymmetric density left breast POS [id number] us Taya Stiles MD IMG US BREAST [...] S/S: Follow-up asymmetric density left breast POS [id number] Narrative 09/16/2017 3:40 PM EDT Full field [...] S/S: Follow-up asymmetric density left breast POS [id number] Taya Stiles MD IMG MG EXAMS Final Re sult documented in this encounter Visit Diagnoses Diagnosis Abnormal mammogram Abnormal mammogram, unspecified Abnormal mammogram Abnormal mammogram, unspecified Abnormal mammogram Abnormal mammogram, unspecified documented in this encounter Additional Health Concerns Infection Onset Date Last Indicated Resolved Time CoV-Risk 04/20/2024 04/20/2024 05/01/2024 1:21 AM EDT documented as of this encounter Care Teams Pmo Consultant Relationship Specialty Start Date End Date Ja Gomes DO [address] [place] [address] PCP - General Internal Medicine 12/13/16 documented as of this encounter Additional Source Comments The information contained in this document represents components of the legal health record. It is not the complete legal health record.[facility]
--- OUTSIDE RECORDS SUMMARY | 2025-01-26 23:38 | XMS_ITS | Encounter Summary ---
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 documented as of this encounter Functional Status * Calculated C-SSRS Risk Score (Lifetime/Recent) Answer Date of Assessment Author No Risk Indicated 09/09/2021 1:15 PM EDT Charles Ackerman, RN * [place] Suicide Severity Rating Scale (Screener/Recent Self-Report) Question [...] Info) Description 05/17/2025 4:15 PM EDT Appointment [facility], Bone [facility] [address] [place] [address] Marva Olson PA [address] [place] [address] documented as of this encounter Visit Diagnoses Not on filedocumented in this encounter Additional Health Concerns Infection Onset Date Last Indicated Resolved Time CoV-Risk 04/20/2024 04/20/2024 05/01/2024 1:21 AM EDT documented as of this encounter Care Teams Superintendent Sales Relationship Specialty Start Date End Date Ja Gomes DO [address] [place] [address] PCP - General Internal Medicine 12/13/16 documented as of this encounter Additional Source Comments The information contained in this document represents components of the legal health record. It is not the complete legal health record.[facility]
--- OUTSIDE RECORDS SUMMARY | 2025-01-26 23:38 | XMS_ITS | Encounter Summary ---
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 documented as of this encounter Plan of Treatment Upcoming Encounters Date Type Department Care Team (Late st Contact Info) Description 05/17/2025 4:15 PM EDT Appointment [address] [address] Marva Olson PA [address] [place] [address] documented as of this encounter Visit Diagnoses Not on filedocumented in this encounter Additional Health Concerns Infection Onset Date Last Indicated Resolved Time CoV-Risk 04/20/2024 04/20/2024 05/01/2024 1:21 AM EDT documented as of this encounter Care Teams Director Business Integration Relationship Specialty Start Date End Date Ja Gomes DO [address] [place] [address] PCP - General Internal Medicine 12/13/16 documented as of this encounter Additional Source Comments The information contained in this document represents components of the legal health record. It is not the complete legal health record.[facility]
--- OUTSIDE RECORDS SUMMARY | 2025-01-26 23:38 | XMS_ITS | Encounter Summary ---
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 documented as of this encounter Plan of Treatment Upcoming Encounters Date Type Department Care Team (Late st Contact Info) Description 05/17/2025 4:15 PM EDT Appointment [address] [address] Marva Olson PA [address] [place] [address] documented as of this encounter Visit Diagnoses Not on filedocumented in this encounter Additional Health Concerns Infection Onset Date Last Indicated Resolved Time CoV-Risk 04/20/2024 04/20/2024 05/01/2024 1:21 AM EDT documented as of this encounter Care Teams Heating Equipment Installer Relationship Specialty Start Date End Date Ja Gomes DO [address] [place] [address] PCP - General Internal Medicine 12/13/16 documented as of this encounter Additional Source Comments The information contained in this document represents components of the legal health record. It is not the complete legal health record.[facility]
== END 2025-01-26 16:02 | disposition home or self-care (01) ==
LOC: HO.HSM 15:04
PROVIDERS: PCP Internal Medicine; Visit Provider Registered Nurse
DX: G40.109 Localization-related (focal) (partial) symptomatic epilepsy and epileptic syndromes with simple partial seizures, not intractable, without status epilepticus (principal); G25.81 Restless legs syndrome; G43.009 Migraine without aura, not intractable, without status migrainosus
CPT/HCPCS: 99214

== ENCOUNTER 2025-01-26 15:03 | Outpatient (REF) | payer BC, SELFPAY ==
[2025-01-26 16:26] LABS: MANUAL DIFF FLAG NO
[2025-01-26 17:10] LABS: Hematocrit 37.5 % (37.0-47.0); Hemoglobin 13.6 g/dl (12.0-16.0); Imm Gran Abs Auto 0.02 X10*3/uL (0.00-0.03); Imm Gran Pct Auto 0.3 % (0.0-0.4); Lymphocytes Absolute Auto 1.7 X10*3/uL (1.2-4.9); Mean Corpuscular HGB Conc 36.3 g/dl (31.0-35.0); Mean Corpuscular Hemoglobin 32.4 pg (27.0-33.0); Mean Corpuscular Volume 89.3 fL (80.0-98.0); NRBC Abs Auto 0.000 X10*3/uL (0.0-0.012); NRBC Pct Auto 0.0 /100WBC (0.0-0.2); Platelet Count 260 X10*3/uL (160-400); Red Blood Count 4.20 X10*6/uL (4.20-5.50); White Blood Count 5.9 X10*3/uL (4.8-10.8)
[2025-01-26 17:33] LABS: Alanine Aminotransferase 18 U/L (0-31); Albumin Level 4.6 g/dL (3.5-5.0); Alkaline Phosphatase 53 U/L (39-117); Anion Gap 10 (12-20); Aspartate Amino Transferase 22 U/L (5-31); Blood Urea Nitrogen 17 mg/dL (9-16); Calcium 9.2 mg/dL (8.4-10.2); Carbon Dioxide 30 mmol/L (22-29); Chloride 99 mmol/L (96-108); Estimated Glomerular Filt Rate > 60; Potassium 4.3 mmol/L (3.3-5.1); Sodium 135 mmol/L (135-145); Total Protein 6.6 g/dL (6.5-8.0)
[2025-01-26 17:35] LABS: Appearance Urine Clear; Glucose Urine UA Negative (Negative); PH 7.5 (5.0-9.0); Specific Gravity - Urine 1.015 (1.005-1.025)
== END 2025-01-26 15:04 | disposition home or self-care (01) ==
LOC: HO.LAB 15:03
PROVIDERS: PCP Internal Medicine; Visit Provider Registered Nurse
DX: G40.109 Localization-related (focal) (partial) symptomatic epilepsy and epileptic syndromes with simple partial seizures, not intractable, without status epilepticus (principal); G25.81 Restless legs syndrome; G43.009 Migraine without aura, not intractable, without status migrainosus; Z79.899 Other long term (current) drug therapy; N39.0 Urinary tract infection, site not specified
CPT/HCPCS: 36415; 80053; 81001; 85025; 85652; 86140